=== PATIENT | male | born 1995 | race African-American/Black ===

== ENCOUNTER 2016-11-02 10:55 | Emergency (ER) | payer OTHER ==
[2016-11-02 12:26] VITALS: BP 93/56
--- NOTE | 2016-11-02 13:21 | UC ---
HPI Febrile Illness - HPI Summary HPI Summary: 21 yo male with a one week hx of feeling feverish fatigue /myalgias mild sore throat no cough no runny nose no abd pain no UTI symptoms no n/v/d - History of Current Complaint Chief Complaint: UCGeneralIllness Time Seen by Provider: 11/02/16 12:30 Hx Obtained From: Patient Timing: Constant Initial Severity: Mild Current Severity: None Pain Intensity: 4 Pain Scale Used: 0-10 Numeric Aggravating Factors: Nothing Alleviating Factors: Nothing Associated Signs and Symptoms: Chills, Headache - mild, Sore Throat - mild, Other: - fatgue Related History: Recent Tick Bite - no recent bites/fishes a lot/has removed them from dog - Allergy/Home Medications Allergies/Adverse Reactions: Allergies Allergy/AdvReac Type Severity Reaction Status Date / Time Amoxicillin Allergy Intermediate Rash Verified 11/02/16 12:27 Home Medications: Home Medications FLUoxetine CAP* [Prozac CAP*] 30 mg PO DAILY 11/02/16 [History Confirmed ] lamoTRIgine TAB(*) [Lamictal TAB(*)] 50 mg PO DAILY 11/02/16 [History Confirmed 11/02/16] PMH/Surg Hx/FS Hx/Imm Hx Previously Healthy: Yes Psychiatric History: Reports: Other Psychiatric Issues/Disorders - OCD - Surgical History Surgery Procedure, Year, and Place: lymph node removed from head Infectious Disease History: No Infectious Disease History: Denies: Traveled Outside the [place] in Last 30 Days - Social History Alcohol Use: Rare Substance Use Type: Reports: None Smoking Status (MU): Never Smoked Tobacco Type: Smokeless Tobacco Review of Systems Constitutional: Fatigue ENT: Sore Throat Musculoskeletal: Myalgia Neurological: Headache All Other Systems Reviewed And Are Negative: Yes Physical Exam Triage Information Reviewed: Yes Appearance: Well-Appearing, No Pain Distress, Well-Nourished Vital Signs: Initial Vital Signs Temp 98.7 F 11/02/16 12:23 Pulse 89 11/02/16 12:23 Resp 17 11/02/16 12:23 BP 93/56 11/02/16 12:23 Pulse Ox 100 11/02/16 12:23 Vital Signs Reviewed: Yes Eyes: Positive: Conjunctiva Clear ENT: Positive: Hearing grossly normal, Pharyngeal erythema, TMs normal. Negative: Nasal congestion, Nasal drainage, TM bulging, TM dull, TM red, Tonsillar exudate, Trismus, Muffled/hoarse voice Dental: Negative: Gross Decay/Caries @, Dental Fracture @, Abscess @ Neck: Positive: Supple, Nontender, No Lymphadenopathy Respiratory: Positive: Lungs clear, Normal breath sounds, No respiratory distress, No accessory muscle use Cardiovascular: Positive: RRR, No Murmur. Negative: Tachycardia, Bradycardia Abdomen Description: Positive: Nontender, No Organomegaly. Negative: Bruit, CVA Tenderness (L), Guarding, Pulsatile Mass, Splenomegaly Musculoskeletal: Positive: ROM Intact, No Edema Neurological Exam: Normal Neurological: Positive: Alert Psychological Exam: Normal Skin Exam: Normal Course/Dx - Course Course Of Treatment: declines blood work (cbc/lyme). will reconsider if not better in a few days. RS and Udip (-) - Diagnoses Clinic Provider Diagnoses: febrile illness. suspect viral syndrome Discharge - Discharge Plan Condition: Stable Disposition: HOME Patient Education Materials: Viral Syndrome (ED) Forms: *Gen. Provider Communication, *Work Release Referrals: [facility] [place] [facility] [Outside] - If Needed Additional Instructions: rest fluids tylenol or advil if needed recheck in 3-4 days if not better recheck sooner for new or worsening symptoms
== END 2016-11-02 13:20 | disposition home or self-care (01) ==
LOC: UCCORT 10:55 → MERGE 10:55 → UCCORT 13:20
DX: R50.9 Fever, unspecified (principal); R53.83 Other fatigue; J02.9 Acute pharyngitis, unspecified; Z88.1 Allergy status to other antibiotic agents
CPT/HCPCS: 81003; 87651; 99201; G0463

== ENCOUNTER 2016-11-04 18:55 | Emergency (ER) | payer OTHER ==
[2016-11-04] MEDS ORDERED: lamoTRIgine TAB(*) 100 MG PO ONE (21:17)
[2016-11-04] MEDS ORDERED: FLUoxetine CAP* 10 MG PO ONE (21:17)
--- NOTE | 2016-11-04 21:33 | ED ---
Emily Arrieta Janilya, scribed for Jewell Fields MD on 11/04/16 at 2053 . Complex/Multi-Sys Presentation - HPI Summary HPI Summary: A 21 y/o male came in to [facility] for a request for Lamictal and Prozac prescription. Pt states that he was seen at [facility] where has prescribed these medications. His doctor continued the prescription of these meds for the next 6 months. However, pt reports that his doctor suddenly discontinued the prescription. He ran out of his medication on , 2016 and requests a refill. He normally takes 50 mg of Lamictal (25 mg twice a day) and 30 mg of Prozac (20 mg and 10 mg tablets). Pt states that the medications have been working for him. However, he does report feeling agitated for the past few days. Pt denies feeling suicidal. PMHx borderline personality disorder, OCD, bipolar disorder. - History Of Current Complaint Chief Complaint: EDGeneral Time Seen by Provider: 11/04/16 20:46 Hx Obtained From: Patient Onset/Duration: Gradual Onset, Lasting Days, Still Present Timing: Constant Severity Currently: Moderate Severity Initially: Moderate Associated Signs And Symptoms: Positive: Agitation - Allergies/Home Medications Allergies/Adverse Reactions: Allergies Allergy/AdvReac Type Severity Reaction Status Date / Time Amoxicillin Allergy Intermediate Rash Verified 11/02/16 12:27 PINK DYE Allergy Severe Anaphylatic Uncoded 03/10/16 12:32 Shock PMH/Surg Hx/FS Hx/Imm Hx Previously Healthy: Yes Respiratory History: Reports: Hx Asthma - with exercise GI History: Reports: Other GI Disorders - rectal bleeding, polyps Musculoskeletal History: Reports: Other Musculoskeletal History - broken big toe 3 mths ago Sensory History: Reports: Hx Contacts or Glasses Opthamlomology History: Reports: Hx Contacts or Glasses Psychiatric History: Reports: Hx Depression, Other Psychiatric Issues/Disorders - OCD Denies: Hx Eating Disorder, Hx of Violent Episodes Against Others - Surgical History Surgery Procedure, Year, and Place: lymph node removed from head Infectious Disease History: Denies: Traveled Outside the [place] in Last 30 Days - Family History Known Family History: Negative: Cardiac Disease, Hypertension, Diabetes - Social History Occupation: Employed Full-time Alcohol Use: Occasionally Alcohol Amount: 1/2 glass wine tonight Substance Use Type: Reports: None Smoking Status (MU): Never Smoked Tobacco Type: Smokeless Tobacco Review of Systems Negative: Fever Positive: Other - agitated All Other Systems Reviewed And Are Negative: Yes Physical Exam Triage Information Reviewed: Yes Vital Signs On Initial Exam: Initial Vitals Temp Pulse Resp BP Pulse Ox 97.6 F 107 20 113/71 100 11/04/16 19:00 11/04/16 19:00 11/04/16 19:00 11/04/16 19:00 11/04/16 19:00 Vital Signs Reviewed: Yes Appearance: Positive: Well-Appearing, No Pain Distress Skin: Positive: Warm, Skin Color Reflects Adequate Perfusion Eyes: Positive: EOMI, ARELY ENT: Positive: Pharynx normal, TMs normal Neck: Positive: Supple, Nontender Respiratory/Lung Sounds: Positive: Clear to Auscultation, Breath Sounds Present. Negative: Rales, Rhonchi, Wheezes Cardiovascular: Positive: RRR, Pulses are Symmetrical in both Upper and Lower Extremities. Negative: Murmur, Rub, Other - no gallops Abdomen Description: Positive: Nontender, Soft. Negative: Distended, Guarding, Other: - no rebound Bowel Sounds: Positive: Present Musculoskeletal: Positive: Strength/ROM Intact. Negative: Edema Left, Edema Right Neurological: Positive: Sensory/Motor Intact, Alert, Oriented to Person Place, Time, CN Intact II-III Psychiatric: Positive: Affect/Mood Appropriate Diagnostics - Vital Signs Vital Signs Temp Pulse Resp BP Pulse Ox 11/04/16 19:00 97.6 F 107 20 113/71 100 - Laboratory Lab Statement: Any lab studies that have been ordered have been reviewed, and results considered in the medical decision making process. Complex Multi-Symp Course/Dx Course Of Treatment: A 21 y/o male came in to [facility] for a request for Lamictal and Prozac prescription. Pt states that he was seen at [facility] where has prescribed these medications. His doctor continued the prescription of these meds for the next 6 months. However, pt reports that his doctor suddenly discontinued the prescription. He ran out of his medication on , 11/02/2016 and requests a refill. He normally takes 50 mg of Lamictal (25 mg twice a day) and 30 mg of Prozac (20 mg and 10 mg tablets). Pt states that the medications have been working for him. However, he does report feeling agitated for the past few days. Pt denies feeling suicidal. PMHx borderline personality disorder, OCD, bipolar disorder. refilled pts meds and gave him several refills in order to give him enough time to get back into [facility], pt deneis suicidality - Diagnoses Provider Diagnoses: Borderline personality disorder Discharge - Discharge Plan Condition: Stable Disposition: HOME Prescriptions: FLUoxetine CAP* [PROzac CAP*] 30 mg PO DAILY #30 cap lamoTRIgine TAB(*) [LaMICtal TAB(*)] 50 mg PO BID #60 tab Patient Education Materials: Bipolar Disorder (ED) Referrals: No Primary Care Phys,NOPCP [Primary Care Provider] - [facility] [place] [facility] RE[facility]ERR[facility] [Outside] - 2 Days The documentation as recorded by the Emily velasquez Janilya accurately reflects the service I personally performed and the decisions made by me, Jewell Fields MD.
[2016-11-04] MEDS ORDERED: lamoTRIgine TAB(*) 25 MG ONE (21:38)
[2016-11-04 21:58] VITALS: BP 94/61
[2016-11-04] MEDS ORDERED: lamoTRIgine TAB(*) 25 MG PO ONE (22:00)
== END 2016-11-04 21:55 | disposition home or self-care (01) ==
LOC: ED 18:55
DX: F60.3 Borderline personality disorder (principal)
CPT/HCPCS: 99282; A9270-GY

== ENCOUNTER 2017-01-03 15:38 | Emergency (ER) | payer OTHER ==
[2017-01-03 16:02] VITALS: BP 101/56
--- NOTE | 2017-01-03 16:11 | UC ---
Abdominal Pain Male HPI - HPI Summary HPI Summary: had emesis times 3 yesterday---today is taking clear liquids and crackers---no fever, voiding usual amount - History of Current Complaint Chief Complaint: UCGeneralIllness Stated Complaint: NAUSEA Time Seen by Provider: 01/03/17 16:05 Hx Obtained From: Patient Onset/Duration: Sudden Onset, Lasting Days - 1, Still Present - but getting better Timing: Constant Severity Initially: Moderate Severity Currently: Mild Pain Intensity: 3 Pain Scale Used: 0-10 Numeric Location: Diffuse Radiates: No Character: Cramping Aggravating Factor(s):: Nothing Alleviating Factor(s): Nothing Associated Signs And Symptoms: Positive: Nausea, Vomiting - Allergies/Home Medications Allergies/Adverse Reactions: Allergies Allergy/AdvReac Type Severity Reaction Status Date / Time Amoxicillin Allergy Intermediate Rash Verified 01/03/17 16:02 PINK DYE Allergy Severe Anaphylatic Uncoded 01/03/17 16:02 Shock PMH/Surg Hx/FS Hx/Imm Hx Previously Healthy: Yes - Surgical History Surgical History: Yes Surgery Procedure, Year, and Place: lymph node removed from head - Family History Known Family History: Negative: Cardiac Disease, Hypertension, Diabetes - Social History Occupation: Employed Full-time Lives: With Family Alcohol Use: Occasionally Substance Use Type: None Smoking Status (MU): Never Smoked Tobacco Type: Smokeless Tobacco Household Exposure Type: Cigarettes - Immunization History Most Recent Influenza Vaccination: none Most Recent Tetanus Shot: 01/21 Most Recent Pneumonia Vaccination: no Review of Systems Constitutional: Negative Skin: Negative Eyes: Negative ENT: Negative Respiratory: Negative Cardiovascular: Negative Gastrointestinal: Abdominal Pain, Vomiting, Nausea Genitourinary: Negative Motor: Negative Neurovascular: Negative Musculoskeletal: Negative Neurological: Negative Psychological: Negative All Other Systems Reviewed And Are Negative: Yes Physical Exam Triage Information Reviewed: Yes Appearance: Well-Appearing, No Pain Distress, Well-Nourished Vital Signs: Initial Vital Signs Temp 97.5 F 01/03/17 15:58 Pulse 80 01/03/17 15:58 Resp 16 01/03/17 15:58 BP 101/56 01/03/17 15:58 Pulse Ox 99 01/03/17 15:58 Vital Signs Reviewed: Yes Eye Exam: Normal Eyes: Positive: Conjunctiva Clear ENT Exam: Normal ENT: Positive: Normal ENT inspection, Hearing grossly normal, Pharynx normal, TMs normal. Negative: Nasal congestion, Nasal drainage, Trismus, Muffled/ hoarse voice Dental Exam: Normal Neck exam: Normal Neck: Positive: Supple, Nontender, No Lymphadenopathy Respiratory Exam: Normal Respiratory: Positive: Chest non-tender, Lungs clear, Normal breath sounds, No respiratory distress, No accessory muscle use Cardiovascular Exam: Normal Cardiovascular: Positive: RRR, No Murmur, Pulses Normal, Brisk Capillary Refill Abdominal Exam: Normal Abdomen Description: Positive: No Organomegaly, Soft Bowel Sounds: Positive: Present Musculoskeletal Exam: Normal Musculoskeletal: Positive: Strength Intact, ROM Intact, No Edema Neurological Exam: Normal Neurological: Positive: Alert, Muscle Tone Normal Psychological Exam: Normal Skin Exam: Normal Abd Pain Male Course/Dx - Course Course Of Treatment: clear liquids advance diet slowly, follow with pcp return should sx fail to improve or worsen - Differential Dx/Clinical Impression Differential Diagnosis/HQI/PQRI: Appendicitis, Gall Bladder Disease, Pancreatitis, Other - acute nausea/vomiting Provider Diagnoses: Acute nausea/vomiting Discharge - Discharge Plan Condition: Stable Disposition: HOME Prescriptions: Fluticasone NASAL SPRAY 50MCG* [Flonase NASAL SPRAY 50MCG*] 2 spray BOTH NARES DAILY #1 btl Patient Education Materials: Clear Liquid Diet (ED), Rhinosinusitis (ED), Acute Nausea and Vomiting (ED) Forms: *Work Release Referrals: [facility] [place] [facility] [Outside] - If Needed
== END 2017-01-03 16:18 | disposition home or self-care (01) ==
LOC: UCCORT 15:38
DX: R11.2 Nausea with vomiting, unspecified (principal)
CPT/HCPCS: 99212; G0463

== ENCOUNTER 2017-03-05 13:55 | Emergency (ER) | payer OTHER ==
--- NOTE | 2017-03-05 13:58 | UC ---
Throat Pain/Nasal Venkat HPI - HPI Summary HPI Summary: 21 YEAR OLD MALE PRESENTS WITH COMPLAINS OF SORE THROAT. OF NOTE SHE WAS EXPOSED TO STREPT BY HIS PARTNER. - History of Current Complaint Stated Complaint: SORE THROAT Time Seen by Provider: 03/05/17 13:57 Hx Obtained From: Patient Onset/Duration: Sudden Onset, Lasting Hours Severity: Moderate Pain Scale Used: 0-10 Numeric - 5 Cough: Nonproductive Associated Signs & Symptoms: Positive: Sinus Discomfort, Nasal Discharge Related History: Seasonal Allergies - Allergies/Home Medications Allergies/Adverse Reactions: Allergies Allergy/AdvReac Type Severity Reaction Status Date / Time Amoxicillin Allergy Intermediate Rash Verified 03/05/17 14:05 PINK DYE Allergy Severe Anaphylatic Uncoded 03/05/17 14:05 Shock PMH/Surg Hx/FS Hx/Imm Hx Previously Healthy: Yes - Surgical History Surgical History: Yes Surgery Procedure, Year, and Place: lymph node removed from head - Family History Known Family History: Negative: Cardiac Disease, Hypertension, Diabetes - Social History Alcohol Use: Occasionally Alcohol Amount: 1/2 glass wine tonight Substance Use Type: None Smoking Status (MU): Never Smoked Tobacco Type: Smokeless Tobacco Household Exposure Type: Cigarettes - Immunization History Most Recent Influenza Vaccination: none Most Recent Tetanus Shot: 01/21 Most Recent Pneumonia Vaccination: no Review of Systems Constitutional: Negative Skin: Negative Eyes: Negative ENT: Sore Throat Respiratory: Negative Cardiovascular: Negative Gastrointestinal: Negative Genitourinary: Negative Motor: Negative Neurovascular: Negative Musculoskeletal: Negative Neurological: Negative Psychological: Negative All Other Systems Reviewed And Are Negative: Yes Physical Exam Triage Information Reviewed: Yes Appearance: Well-Appearing Vital Signs Reviewed: Yes Eye Exam: Normal ENT: Positive: Pharyngeal erythema, Nasal congestion, Nasal drainage Dental Exam: Normal Neck exam: Normal Neck: Positive: 1 Respiratory Exam: Normal Cardiovascular Exam: Normal Abdominal Exam: Normal Musculoskeletal Exam: Normal Neurological Exam: Normal Psychological Exam: Normal Skin Exam: Normal Throat Pain/Nasal Course/Dx - Differential Dx/Diagnosis Provider Diagnoses: PHARYNGITIS Discharge - Discharge Plan Condition: Stable Disposition: HOME Prescriptions: Azithromyxin ROXANNE (NF) [Z-Roxanne (Zithromax) 250 mg tabs #6] 2 tab PO .TODAY, THEN 1 DAILY #6 tab LoraTADine TAB(NF) [Claritin 10 MG TAB(NF)] 10 mg PO DAILY #30 tab Magic M W2 Roney/Maal/Nyst/Lido* 15 ml SWISH SPIT QID #120 ml Patient Education Materials: Pharyngitis (ED) Referrals: No Primary Care Phys,NOPCP [Primary Care Provider] -
[2017-03-05 14:05] VITALS: BP 108/64
== END 2017-03-05 14:30 | disposition home or self-care (01) ==
LOC: UCCORT 13:55
DX: J02.9 Acute pharyngitis, unspecified (principal); Z88.1 Allergy status to other antibiotic agents; Z91.048 Other nonmedicinal substance allergy status
CPT/HCPCS: 87651; 99212; G0463

== ENCOUNTER 2017-04-13 18:18 | Emergency (ER) | payer OTHER ==
--- NOTE | 2017-04-13 18:41 | UC ---
Throat Pain/Nasal Venkat HPI - HPI Summary HPI Summary: 21 YEAR OLD FEMALE PRESENTS WITH SORE THROAT , POST NASAL DRIP AND NASAL CONGESTION - History of Current Complaint Stated Complaint: SORE THROAT/SINUS Time Seen by Provider: 04/13/17 18:41 Hx Obtained From: Patient Onset/Duration: Sudden Onset Severity: Moderate Pain Scale Used: 0-10 Numeric - 5 Cough: Nonproductive Associated Signs & Symptoms: Positive: Negative - Allergies/Home Medications Allergies/Adverse Reactions: Allergies Allergy/AdvReac Type Severity Reaction Status Date / Time Amoxicillin Allergy Intermediate Rash Verified 04/13/17 18:44 PINK DYE Allergy Severe Anaphylatic Uncoded 04/13/17 18:44 Shock PMH/Surg Hx/FS Hx/Imm Hx Previously Healthy: Yes - Surgical History Surgical History: Yes Surgery Procedure, Year, and Place: lymph node removed from head - Family History Known Family History: Negative: Cardiac Disease, Hypertension, Diabetes - Social History Alcohol Use: Occasionally Alcohol Amount: 1/2 glass wine tonight Substance Use Type: None Smoking Status (MU): Never Smoked Tobacco Type: Smokeless Tobacco Household Exposure Type: Cigarettes - Immunization History Most Recent Influenza Vaccination: none Most Recent Tetanus Shot: 01/21 Most Recent Pneumonia Vaccination: no Review of Systems Constitutional: Negative Skin: Negative Eyes: Negative ENT: Sore Throat, Nasal Discharge, Sinus Congestion, Sinus Pain/Tenderness Respiratory: Negative Cardiovascular: Negative Gastrointestinal: Negative Genitourinary: Negative Motor: Negative Neurovascular: Negative Musculoskeletal: Negative Neurological: Negative Psychological: Negative All Other Systems Reviewed And Are Negative: Yes Physical Exam Triage Information Reviewed: Yes Vital Signs Reviewed: Yes Eye Exam: Normal ENT Exam: Normal Dental Exam: Normal Neck exam: Normal Neck: Positive: 1 Respiratory Exam: Normal Cardiovascular Exam: Normal Abdominal Exam: Normal Musculoskeletal Exam: Normal Neurological Exam: Normal Psychological Exam: Normal Skin Exam: Normal Throat Pain/Nasal Course/Dx - Differential Dx/Diagnosis Provider Diagnoses: PHARYNGITIS. SINUSITIS. POST NASAL DRIP Discharge - Discharge Plan Condition: Stable Disposition: HOME Prescriptions: Cetirizine* [ZyrTEC 10 MG TAB*] 10 mg PO DAILY #30 tab DOXYcycline CAP(*) [DOXYcycline 100MG CAP(*)] 100 mg PO BID #14 cap Magic M W2 Roney/Maal/Nyst/Lido* 5 ml SWISH SPIT QID PRN #120 ml PRN Reason: Sore Throat Patient Education Materials: Pharyngitis (ED) Forms: *Work Release Referrals: No Primary Care Phys,NOPCP [Primary Care Provider] -
[2017-04-13 18:50] VITALS: BP 105/57
[2017-04-13] MEDS ORDERED: Lidocaine 2% VISCOUS* 15 ML UDC SWISH SPIT ONE ×2 (19:12→19:22)
[2017-04-13] MEDS ORDERED: LoraTADine TAB(NF) 10 MG TAB (AUTOSUB to CETIRIZINE) PO ONE (19:12)
[2017-04-13] MEDS ORDERED: LoraTADine TAB(NF) 10 MG TAB (AUTOSUB to CETIRIZINE) ONE (19:17)
[2017-04-13] MEDS ORDERED: Lidocaine 2% VISCOUS* 15 ML UDC ONE ×2 (19:17→19:20)
== END 2017-04-13 19:25 | disposition home or self-care (01) ==
LOC: EDSEX 18:18 → UCCORT 18:18
DX: J02.9 Acute pharyngitis, unspecified (principal); J32.9 Chronic sinusitis, unspecified; R09.82 Postnasal drip; Z88.0 Allergy status to penicillin
CPT/HCPCS: 87651; 99212; A9270-GY; G0463

== ENCOUNTER 2017-04-30 17:01 | Emergency (ER) | payer OTHER ==
[2017-04-30 18:54] VITALS: BP 111/66
--- NOTE | 2017-04-30 19:39 | ED ---
Upper Extremity Pain - HPI Summary HPI Summary: 22 yr old female with the complaint of right little finger pain. Onset of pain was several days ago. She got the right pinky finger jammed between a tire and tire rack. Pain is worse on range of motion of DIP 5th finger. Pain is moderate. - History of Current Complaint Chief Complaint: UCUpperExtremity Stated Complaint: RIGHT PINKY FINGER INJURY Time Seen by Provider: 04/30/17 19:26 - Allergies/Home Medications Allergies/Adverse Reactions: Allergies Allergy/AdvReac Type Severity Reaction Status Date / Time Amoxicillin Allergy Intermediate Rash Verified 04/30/17 18:53 PINK DYE Allergy Severe Anaphylatic Uncoded 04/30/17 18:53 Shock PMH/Surg Hx/FS Hx/Imm Hx Previously Healthy: Yes Respiratory History: Reports: Hx Asthma - with exercise GI History: Reports: Other GI Disorders - rectal bleeding, polyps Musculoskeletal History: Reports: Other Musculoskeletal History - broken big toe 3 mths ago Sensory History: Reports: Hx Contacts or Glasses Opthamlomology History: Reports: Hx Contacts or Glasses Psychiatric History: Reports: Hx Depression, Other Psychiatric Issues/Disorders - OCD Denies: Hx Eating Disorder, Hx of Violent Episodes Against Others - Surgical History Surgery Procedure, Year, and Place: lymph node removed from head Infectious Disease History: No Infectious Disease History: Denies: Traveled Outside the [place] in Last 30 Days - Family History Known Family History: Negative: Cardiac Disease, Hypertension, Diabetes - Social History Alcohol Use: Occasionally Alcohol Amount: 1/2 glass wine tonight Substance Use Type: Reports: None Smoking Status (MU): Never Smoked Tobacco Type: Smokeless Tobacco Review of Systems Constitutional: Negative Positive: Other - pain in right 5th finger All Other Systems Reviewed And Are Negative: Yes Physical Exam Triage Information Reviewed: Yes Vital Signs On Initial Exam: Initial Vitals Temp Pulse Resp BP Pulse Ox 97.6 F 79 14 111/66 100 04/30/17 18:50 04/30/17 18:50 04/30/17 18:50 04/30/17 18:50 04/30/17 18:50 Vital Signs Reviewed: Yes Appearance: Positive: Well-Appearing, No Pain Distress Skin: Positive: Warm Head/Face: Positive: Normal Head/Face Inspection Eyes: Positive: EOMI Neck: Positive: Nontender Respiratory/Lung Sounds: Positive: Clear to Auscultation Cardiovascular: Positive: Pulses are Symmetrical in both Upper and Lower Extremities - upper Abdomen Description: Positive: Nontender Musculoskeletal: Positive: Strength/ROM Intact Neurological: Positive: Sensory/Motor Intact, Alert, Oriented to Person Place, Time, CN Intact II-III Psychiatric: Positive: Normal - Maria Esther Coma Scale Best Eye Response: 4 - Spontaneous Best Motor Response: 6 - Obeys Commands Best Verbal Response: 5 - Oriented Diagnostics - Vital Signs Vital Signs Temp Pulse Resp BP Pulse Ox 04/30/17 18:50 97.6 F 79 14 111/66 100 - Laboratory Lab Statement: Any lab studies that have been ordered have been reviewed, and results considered in the medical decision making process. - Radiology right pinky finger Xray Interpretation: No Acute Changes Radiology Interpretation Completed By: Radiologist Course/Dx - Course Course Of Treatment: 22 yr old with finger sprain, dc to home. - Diagnoses Provider Diagnoses: Finger sprain Discharge - Discharge Plan Condition: Good Disposition: HOME Patient Education Materials: Finger Sprain (ED) Referrals: No Primary Care Phys,NOPCP [Primary Care Provider] - Mercedes Bonilla MD [Medical Doctor] - [facility] [place] [facility] [Outside]
--- NOTE | 2017-04-30 20:27 | RAD ---
INDICATION: Crush type injury COMPARISON: None TECHNIQUE: AP, lateral, and oblique views were obtained. FINDINGS: The bony structures, joint spaces, and soft tissues are normal for age. IMPRESSION: NEGATIVE EXAMINATION.
== END 2017-04-30 20:54 | disposition home or self-care (01) ==
LOC: UCCORT 17:01
DX: S63.616A Unspecified sprain of right little finger, initial encounter (principal); W23.0XXA Caught, crushed, jammed, or pinched between moving objects, initial encounter; Y93.89 Activity, other specified; Y92.9 Unspecified place or not applicable; J45.990 Exercise induced bronchospasm; F32.9 Major depressive disorder, single episode, unspecified; Z88.1 Allergy status to other antibiotic agents
CPT/HCPCS: 73140; 99212; G0463

== ENCOUNTER 2017-05-22 08:44 | Emergency (ER) | payer OTHER ==
[2017-05-22 09:29] VITALS: BP 102/62
--- NOTE | 2017-05-22 10:53 | UC ---
General HPI - HPI Summary HPI Summary: Pt is here for medication refill. Pt reports that she has history bipolar and OCD and is has been on prozac and lamictal X 2 years. Pt reports she has been unbable to get an appointment with mental health provider in the area. Was given 6 month supply of medications at ER visit in October 2016 at [facility] [place]. Pt report zaira prescription ran out last week and feels she is going through withdrawal. - History of Current Complaint Chief Complaint: UCMedRefill Stated Complaint: PERSCRIPTION REFIL Time Seen by Provider: 05/22/17 10:19 Hx Obtained From: Patient Hx Last Menstrual Period: 05/09/17 Onset/Duration: Gradual Onset, Still Present Timing: Constant Onset Severity: Mild Current Severity: None Pain Intensity: 0 - Allergy/Home Medications Allergies/Adverse Reactions: Allergies Allergy/AdvReac Type Severity Reaction Status Date / Time Amoxicillin Allergy Intermediate Rash Verified 05/22/17 09:29 PINK DYE Allergy Severe Anaphylatic Uncoded 05/22/17 09:29 Shock PMH/Surg Hx/FS Hx/Imm Hx Previously Healthy: Yes - bipolar, ocd Psychological History: Bipolar Disorder, Other - OCD Other Psychological History: OCD - Surgical History Surgical History: Yes Surgery Procedure, Year, and Place: lymph node removed from head - Family History Known Family History: Negative: Cardiac Disease, Hypertension, Diabetes - Social History Occupation: Employed Full-time Lives: With Family Alcohol Use: Occasionally Alcohol Amount: 1/2 glass wine tonight Substance Use Type: None Smoking Status (MU): Light Every Day Tobacco Smoker Type: Cigarettes, Smokeless Tobacco Amount Used/How Often: 1 pack per week Have You Smoked in the Last Year: Yes Household Exposure Type: Cigarettes - Immunization History Most Recent Influenza Vaccination: none Most Recent Tetanus Shot: 01/21 Most Recent Pneumonia Vaccination: no Review of Systems Constitutional: Negative Skin: Negative Eyes: Negative ENT: Negative Respiratory: Negative Cardiovascular: Negative Gastrointestinal: Negative Genitourinary: Negative Motor: Negative Neurovascular: Negative Musculoskeletal: Negative Neurological: Negative Psychological: Negative Is Patient Immunocompromised?: No All Other Systems Reviewed And Are Negative: Yes Physical Exam Triage Information Reviewed: Yes Appearance: Well-Appearing Vital Signs: Initial Vital Signs Temp 98.4 F 05/22/17 09:24 Pulse 85 05/22/17 09:24 Resp 16 05/22/17 09:24 BP 102/62 05/22/17 09:24 Pulse Ox 100 05/22/17 09:24 Eye Exam: Normal ENT Exam: Normal Dental Exam: Normal Neck exam: Normal Respiratory: Positive: No respiratory distress Musculoskeletal Exam: Normal Neurological Exam: Normal Psychological Exam: Normal Skin Exam: Normal Course/Dx - Course Course Of Treatment: Pt was given referral to mental health providers, I explained that we can not continue to refill her medications. Pt verbalized understanding and agreed to plan of care. - Differential Dx - Multi-Symptom Provider Diagnoses: Medication refill. pt was given referral to PCP and mental health providers. Discharge - Discharge Plan Condition: Stable Disposition: HOME Prescriptions: FLUoxetine CAP* [Prozac CAP*] 30 mg PO DAILY #30 cap lamoTRIgine TAB(*) [Lamictal TAB(*)] 100 mg PO DAILY #30 tab Patient Education Materials: Medicine Refill (ED) Referrals: No Primary Care Phys,NOPCP [Primary Care Provider] - Additional Instructions: Please establish care with a PCP we have provided a list of local primary care providers. Additionally, we have provided one month of medication for you as a courtesy but can not continue to provide medication refills you must establish care with a PCP and a Mental Health Provider as soon as possible.
== END 2017-05-22 10:42 | disposition home or self-care (01) ==
LOC: UCCORT 08:44
DX: F31.9 Bipolar disorder, unspecified (principal); F42.9 Obsessive-compulsive disorder, unspecified; Z76.0 Encounter for issue of repeat prescription; Z88.1 Allergy status to other antibiotic agents; F17.210 Nicotine dependence, cigarettes, uncomplicated
CPT/HCPCS: 99212; G0463

== ENCOUNTER 2017-06-05 10:43 | Emergency (ER) | payer OTHER ==
[2017-06-05 11:12] VITALS: BP 93/55
--- NOTE | 2017-06-05 11:36 | UC ---
Throat Pain/Nasal Venkat HPI - HPI Summary HPI Summary: 22 female presents to with complaints of sore throat that has been ongoing for 2 days and feels it is worsening. Pain is worsened with swallowing. Denies cough, trouble breathing, vomiting, nausea, and nasal congestion. Denies headache and ear pain. Admits to having some body aches. Denies fatigue and fever/chills. Has been diagnosed with mono in the past. States fiance and two daughters are also ill, not feeling well. No other complaints at this time. No PMHx. Has not taken any medications. - History of Current Complaint Chief Complaint: UCRespiratory Stated Complaint: ST/BODY ACHES Time Seen by Provider: 06/05/17 11:19 Hx Obtained From: Patient Hx Last Menstrual Period: 05/29/17 ?: No Onset/Duration: Sudden Onset, Lasting Days - 2, Still Present, Worse Since Severity: Moderate Pain Intensity: 8 Pain Scale Used: 0-10 Numeric Cough: None Associated Signs & Symptoms: Positive: Dysphagia - Epiglottits Risk Factors Epiglottis Risk Factors: Negative - Allergies/Home Medications Allergies/Adverse Reactions: Allergies Allergy/AdvReac Type Severity Reaction Status Date / Time Amoxicillin Allergy Intermediate Rash Verified 06/05/17 11:05 PINK DYE Allergy Severe Anaphylatic Uncoded 06/05/17 11:05 Shock PMH/Surg Hx/FS Hx/Imm Hx - Additional Past Medical History Additional PMH: Denies PMHx HTN and DM - Surgical History Surgical History: Yes Surgery Procedure, Year, and Place: lymph node removed from head - Family History Known Family History: Negative: Cardiac Disease, Hypertension, Diabetes - Social History Alcohol Use: Occasionally Alcohol Amount: 1/2 glass wine tonight Substance Use Type: None Smoking Status (MU): Light Every Day Tobacco Smoker Type: Cigarettes, Smokeless Tobacco Amount Used/How Often: 1 pack per week Have You Smoked in the Last Year: Yes Household Exposure Type: Cigarettes - Immunization History Most Recent Influenza Vaccination: none Most Recent Tetanus Shot: 01/21 Most Recent Pneumonia Vaccination: no Review of Systems Constitutional: Negative ENT: Sore Throat Respiratory: Negative Cardiovascular: Negative Musculoskeletal: Myalgia Neurological: Negative All Other Systems Reviewed And Are Negative: Yes Physical Exam Triage Information Reviewed: Yes Appearance: Well-Appearing, No Pain Distress, Well-Nourished Vital Signs: Initial Vital Signs Temp 97.2 F 06/05/17 11:06 Pulse 80 06/05/17 11:06 Resp 16 06/05/17 11:06 BP 93/55 06/05/17 11:06 Pulse Ox 100 06/05/17 11:06 Vital Signs Reviewed: Yes Eyes: Positive: Conjunctiva Clear ENT: Positive: Normal ENT inspection, Hearing grossly normal, Pharyngeal erythema, TMs normal, Uvula midline, Other - airway patent, no sign of peritonsillar abscess. Negative: Nasal congestion, Nasal drainage, Tonsillar swelling, Tonsillar exudate, Trismus, Muffled voice, Sinus tenderness Dental: Negative: Percussion Tenderness @, Cervical Lymphadenopathy Neck: Positive: Supple, Nontender, No Lymphadenopathy Respiratory: Positive: Chest non-tender, Lungs clear, Normal breath sounds, No respiratory distress Cardiovascular: Positive: RRR, No Murmur, Pulses Normal, Brisk Capillary Refill Abdomen Description: Positive: Nontender, Soft Musculoskeletal: Positive: Strength Intact Neurological: Positive: Alert Skin Exam: Normal Throat Pain/Nasal Course/Dx - Course Course Of Treatment: rapid strep obtained and negative. no concerning physical exam findings, normal vitals. no concern for mono or strep at this time due to HPI and PE findings. will treat for pharyngitis which appears to be viral with symptomatic measures. chloraseptic spray, increase fluid intake, salt water gargles, zinc/emergen-c. Aware of worsening signs and symptoms. wash hands frequently. Follow up with pcp. - Differential Dx/Diagnosis Differential Diagnosis/HQI/PQRI: Mononucleosis, Pharyngitis, URI Provider Diagnoses: viral pharyngitis Discharge - Discharge Plan Condition: Good Disposition: HOME Patient Education Materials: Pharyngitis (ED) Referrals: No Primary Care Phys,NOPCP [Primary Care Provider] - Additional Instructions: Recommend gargling with salt water. Using over the counter chloraseptic spray, emergen-c and zinc to help with symptoms and boost immune system. Increase fluid intake. Ibuprofen/tylenol as needed for pain/inflammation. Follow up with PCP. Any new or worsening symptoms please seek medical attention.
== END 2017-06-05 11:55 | disposition home or self-care (01) ==
LOC: UCCORT 10:43
DX: J02.8 Acute pharyngitis due to other specified organisms (principal); Z72.89 Other problems related to lifestyle; Z72.0 Tobacco use; Z77.22 Contact with and (suspected) exposure to environmental tobacco smoke (acute) (chronic)
CPT/HCPCS: 87651; 99211; G0463

== ENCOUNTER 2017-07-10 17:10 | Emergency (ER) | payer OTHER ==
[2017-07-10 17:49] VITALS: BP 94/54
--- NOTE | 2017-07-10 18:10 | UC ---
Nausea/Vomiting/Diarrhea HPI - HPI Summary HPI Summary: 22 YEAR OLD FEMALE PRESENTS WITH COMPLAINS OF NAUSEA AND VOMITING. - History of Current Complaint Chief Complaint: UCGeneralIllness Stated Complaint: VOMITTING,DIARRHEA Time Seen by Provider: 07/10/17 18:10 Hx Last Menstrual Period: 06/25/17 Onset/Duration: Sudden Onset Severity Initially: Moderate Severity Currently: Moderate - Allergies/Home Medications Allergies/Adverse Reactions: Allergies Allergy/AdvReac Type Severity Reaction Status Date / Time Amoxicillin Allergy Intermediate Rash Verified 07/10/17 17:49 PINK DYE Allergy Severe Anaphylatic Uncoded 07/10/17 17:49 Shock PMH/Surg Hx/FS Hx/Imm Hx Previously Healthy: Yes - Surgical History Surgical History: Yes Surgery Procedure, Year, and Place: lymph node removed from head - Family History Known Family History: Negative: Cardiac Disease, Hypertension, Diabetes - Social History Alcohol Use: Occasionally Alcohol Amount: 1/2 glass wine tonight Substance Use Type: None Smoking Status (MU): Light Every Day Tobacco Smoker Type: Cigarettes, Smokeless Tobacco Amount Used/How Often: 1 pack per week Have You Smoked in the Last Year: Yes Household Exposure Type: Cigarettes - Immunization History Most Recent Influenza Vaccination: none Most Recent Tetanus Shot: 01/21 Most Recent Pneumonia Vaccination: no Review of Systems Constitutional: Negative Skin: Negative Eyes: Negative ENT: Negative Respiratory: Negative Cardiovascular: Negative Gastrointestinal: Vomiting, Nausea Genitourinary: Negative Motor: Negative Neurovascular: Negative Musculoskeletal: Negative Neurological: Negative Psychological: Negative All Other Systems Reviewed And Are Negative: Yes Physical Exam Triage Information Reviewed: Yes Vital Signs: Initial Vital Signs Temp 37.5 C 07/10/17 17:44 Pulse 98 07/10/17 17:44 Resp 18 07/10/17 17:44 BP 94/54 07/10/17 17:44 Pulse Ox 100 07/10/17 17:44 Vital Signs Reviewed: Yes Eye Exam: Normal ENT Exam: Normal Dental Exam: Normal Neck exam: Normal Neck: Positive: 1 Respiratory Exam: Normal Cardiovascular Exam: Normal Abdominal Exam: Normal Musculoskeletal Exam: Normal Neurological Exam: Normal Psychological Exam: Normal Skin Exam: Normal Naus/Vom/Diarrhea Course/Dx - Differential Dx/Diagnosis Provider Diagnoses: NAUSEA. VOMITING. DIARRHEA Condition At Discharge: Stable Discharge - Discharge Plan Condition: Stable Disposition: HOME Prescriptions: Ondansetron ODT TAB* [Zofran 4 MG Odt TAB*] 4 mg PO Q8H PRN #9 tab.odt PRN Reason: Nausea Patient Education Materials: Acute Nausea and Vomiting (ED) Forms: *Work Release Referrals: No Primary Care Phys,NOPCP [Primary Care Provider] -
== END 2017-07-10 19:02 | disposition home or self-care (01) ==
LOC: UCCORT 17:16
DX: R11.2 Nausea with vomiting, unspecified (principal); R19.7 Diarrhea, unspecified; F17.210 Nicotine dependence, cigarettes, uncomplicated; Z88.1 Allergy status to other antibiotic agents; Z91.048 Other nonmedicinal substance allergy status
CPT/HCPCS: 99212; G0463

== ENCOUNTER 2017-10-12 12:03 | Emergency (ER) | payer OTHER ==
[2017-10-12 12:25] VITALS: BP 97/47
--- NOTE | 2017-10-12 12:41 | UC ---
FLU HPI - HPI Summary HPI Summary: Pt presents with body aches, sore throat, and some nausea since yesterday. She tells me that 3 of her family members in the same house have similar symptoms and have been diagnosed with the flu. She denies fever, chills, SOB, chest pain , abdominal pain, vomiting/diarrhea. - History of Current Complaint Hx Obtained From: Patient Hx Last Menstrual Period: 06/25/17 Onset/Duration: Sudden Onset Severity Currently: Moderate Severity Initially: Severe Pain Intensity: 8 Pain Scale Used: 0-10 Numeric <Myron Giles - Last Filed: 10/12/17 12:58> <Betzaida Valle - Last Filed: 10/12/17 13:48> - History of Current Complaint Chief Complaint: UCRespiratory Stated Complaint: FLU SYMPTOMS Time Seen by Provider: 10/12/17 12:27 - Allergy/Home Medications Allergies/Adverse Reactions: Allergies Allergy/AdvReac Type Severity Reaction Status Date / Time amoxicillin Allergy Rash Verified 10/12/17 12:19 PINK DYE Allergy Severe Anaphylatic Uncoded 10/12/17 12:19 Shock PMH/Surg Hx/FS Hx/Imm Hx Previously Healthy: Yes Psychological History: Bipolar Disorder - Surgical History Surgical History: Yes Surgery Procedure, Year, and Place: lymph node removed from head - Family History Known Family History: Negative: Cardiac Disease, Hypertension, Diabetes - Social History Occupation: Employed Full-time Lives: With Family Alcohol Use: Occasionally Alcohol Amount: 1/2 glass wine tonight Substance Use Type: None Smoking Status (MU): Light Every Day Tobacco Smoker Type: eCigarettes Amount Used/How Often: 1 pack per week Have You Smoked in the Last Year: Yes Household Exposure Type: Cigarettes - Immunization History Most Recent Influenza Vaccination: none Most Recent Tetanus Shot: 01/21 Most Recent Pneumonia Vaccination: no <Myron Giles - Last Filed: 10/12/17 12:58> Review of Systems Constitutional: Fatigue, Other - Body aches Skin: Negative Eyes: Negative ENT: Sore Throat Respiratory: Negative Cardiovascular: Negative Gastrointestinal: Nausea Genitourinary: Negative Neurovascular: Negative Musculoskeletal: Negative Neurological: Negative Psychological: Negative All Other Systems Reviewed And Are Negative: Yes <Myron Giles - Last Filed: 10/12/17 12:58> Physical Exam - Summary Physical Exam Summary: GENERAL: NAD. WDWN. No pain distress. SKIN: No rashes, sores, ulcers, masses, lesions. HEENT: Head: AT/NC Eyes: EOM intact. Conjunctiva clear without inflammation or discharge. Ears: Hearing grossly normal. TMs intact, no bulging, erythema, or edema. Nose: Nasal mucosa pink and moist. NTTP maxillary and frontal sinus. Throat: Posterior oropharynx without exudates, erythema, or tonsillar enlargement. Uvula midline. NECK: Supple. Nontender. No lymphadenopathy. CHEST: CTAB. No r/r/w. No accessory muscle use. Breathing comfortably and in no distress. CV: RRR. Without m/r/g. Pulses intact. Brisk cap refill. NEURO: Alert. CN II-XII grossly intact. PSYCH: Age appropriate behavior. Triage Information Reviewed: Yes Vital Signs: Initial Vital Signs Temp 98.1 F 10/12/17 12:19 Pulse 77 10/12/17 12:19 Resp 16 10/12/17 12:19 BP 97/47 10/12/17 12:19 Pulse Ox 100 10/12/17 12:19 <Myron Giles - Last Filed: 10/12/17 12:58> Vital Signs: Initial Vital Signs Temp 98.1 F 10/12/17 12:19 Pulse 77 10/12/17 12:19 Resp 16 10/12/17 12:19 BP 97/47 10/12/17 12:19 Pulse Ox 100 10/12/17 12:19 <Betzaida Valle - Last Filed: 10/12/17 13:48> Flu Course/Dx - Course Course Of Treatment: POC flu A positive. Advised rest, fluids, and ibuprofen prn. - Differential Dx/Diagnosis Provider Diagnoses: Influenza A <Myron Giles - Last Filed: 10/12/17 12:58> Discharge - Sign-Out/Discharge Documenting (check all that apply): Discharge - Billing Disposition and Condition Condition: STABLE Disposition: HOME <Myron Giles - Last Filed: 10/12/17 12:58> - Billing Disposition and Condition Condition: STABLE Disposition: HOME <Betzaida Valle - Last Filed: 10/12/17 13:48> - Discharge Plan Condition: Stable Disposition: HOME Patient Education Materials: Influenza (ED) Forms: *Work Release Referrals: No Primary Care Phys,NOPCP [Primary Care Provider] - Additional Instructions: If you develop a fever, shortness of breath, chest pain, new or worsening symptoms - please call your PCP or go to the ED. Attestation Statement User Type: Provider - I was available for consult. This patient was seen by the [facility]. The patient was not presented to, seen by, or examined by me. -Ree <Betzaida Valle - Last Filed: 10/12/17 13:48>
== END 2017-10-12 13:01 | disposition home or self-care (01) ==
LOC: UCCORT 12:03
DX: M79.1 Myalgia (principal); J02.9 Acute pharyngitis, unspecified; R11.0 Nausea; F31.9 Bipolar disorder, unspecified; F17.290 Nicotine dependence, other tobacco product, uncomplicated
CPT/HCPCS: 87502; 99211; G0463

== ENCOUNTER 2017-10-25 13:06 | Emergency (ER) | payer OTHER ==
[2017-10-25 14:23] VITALS: BP 108/55
--- NOTE | 2017-10-25 15:00 | UC ---
Back Pain HPI - HPI Summary HPI Summary: 6 days of off and on low right back pain, noticed with lifting and bending. 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 No radiation of pain, no associated weakness or paresthesias, no weakness. No relief with ibu or acetaminophen. Sleep not disrupted by pain. Recent flu resolved. Low grade fever noted here: does not feel unwell, and has no associated symptoms. No sore throat, cough, headache, abdominal pain. - History of Current Complaint Chief Complaint: UCBackPain Stated Complaint: BACK PAIN Time Seen by Provider: 10/25/17 14:56 Hx Obtained From: Patient Hx Last Menstrual Period: 09/24/17 Onset/Duration: Gradual Onset, Lasting Days - 6 Timing: Intermittent, Lasting Hours Severity Initially: Moderate Severity Currently: Mild Pain Intensity: 4 Pain Scale Used: 0-10 Numeric Character: Aching Aggravating Factor(s): Lifting, Bending, Walking Alleviating Factor(s): Rest Associated Signs And Symptoms: Positive: Negative - Risk Factors AAA Risk Factors: Negative TAD Risk Factors: Negative Cauda Equina Risk Factors: Negative Epidural Abscess Risk Factors: Negative - Allergies/Home Medications Allergies/Adverse Reactions: Allergies Allergy/AdvReac Type Severity Reaction Status Date / Time amoxicillin Allergy Rash Verified 10/25/17 14:24 PINK DYE Allergy Severe Anaphylatic Uncoded 10/25/17 14:24 Shock Home Medications: Home Medications Acetaminophen [Acetaminophen Extra Strength] 1,000 mg PO Q6HR PRN 10/25/17 [ History Confirmed 10/25/17] FLUoxetine CAP* [Prozac CAP*] 40 mg PO DAILY 10/25/17 [History Confirmed ] PMH/Surg Hx/FS Hx/Imm Hx Psychological History: Depression, Other - Personality disorder (borderline) Other Psychological History: borderline personality disorder. - Surgical History Surgical History: Yes Surgery Procedure, Year, and Place: lymph node removed from head - Family History Known Family History: Positive: Diabetes - mother Negative: Cardiac Disease, Hypertension - Social History Occupation: Employed Full-time Lives: Dormitory/Roommates Alcohol Use: Occasionally Alcohol Amount: 1/2 glass wine tonight Substance Use Type: None Smoking Status (MU): Light Every Day Tobacco Smoker Type: eCigarettes Amount Used/How Often: 1 pack per day Have You Smoked in the Last Year: Yes Household Exposure Type: Cigarettes - Immunization History Most Recent Influenza Vaccination: none Most Recent Tetanus Shot: 01/21 Most Recent Pneumonia Vaccination: no Review of Systems Constitutional: Fever Skin: Negative Eyes: Negative ENT: Negative Respiratory: Negative Cardiovascular: Negative Gastrointestinal: Negative Genitourinary: Negative Motor: Negative Neurovascular: Negative Musculoskeletal: Decreased ROM, Myalgia Neurological: Negative Psychological: Negative Is Patient Immunocompromised?: No All Other Systems Reviewed And Are Negative: No Physical Exam Triage Information Reviewed: Yes Appearance: Well-Appearing, Pain Distress - minimal Vital Signs: Initial Vital Signs Temp 100.6 F 10/25/17 14:13 Pulse 86 10/25/17 14:13 Resp 18 10/25/17 14:13 BP 108/55 10/25/17 14:13 Pulse Ox 98 10/25/17 14:13 ENT: Positive: Pharynx normal, TMs normal Neck: Positive: Supple, Nontender, No Lymphadenopathy Respiratory: Positive: Lungs clear, Normal breath sounds Cardiovascular: Positive: RRR, No Murmur Abdomen Description: Positive: Nontender, No Organomegaly, Soft. Negative: CVA Tenderness (R), CVA Tenderness (L) Musculoskeletal: Positive: Strength Intact, ROM Limited @ - mild pain in right obliques with forward flexion and lateral bending Neurological: Positive: Alert, Muscle Tone Normal Psychological Exam: Normal Skin Exam: Normal Diagnostics - Laboratory Diagnostic Studies Completed/Ordered: UA negative for blood, WBC's Back Pain Course/Dx - Course Course Of Treatment: rest, nsaid's for relief of low back strain. Clinically, this is resolving. - Differential Dx/Diagnosis Provider Diagnoses: low back strain, resolving. Discharge - Sign-Out/Discharge Documenting (check all that apply): Discharge - Discharge Plan Condition: Stable Disposition: HOME Patient Education Materials: Low Back Strain (ED) Forms: *Work Release Referrals: No Primary Care Phys,NOPCP [Primary Care Provider] - Additional Instructions: Increased use of ibuprofen might give more pain relief. I suggest 600mg three times daily with food. Rest and stretch to relieve muscle spasm. Take caution with lifting over the next several weeks to avoid a repeat strain. - Billing Disposition and Condition Condition: STABLE Disposition: HOME
== END 2017-10-25 15:33 | disposition home or self-care (01) ==
LOC: UCCORT 13:06
DX: S39.012A Strain of muscle, fascia and tendon of lower back, initial encounter (principal); X50.9XXA Other and unspecified overexertion or strenuous movements or postures, initial encounter; Y92.9 Unspecified place or not applicable; F17.290 Nicotine dependence, other tobacco product, uncomplicated; Z88.3 Allergy status to other anti-infective agents
CPT/HCPCS: 81003; 99211; G0463

== ENCOUNTER 2017-11-01 08:18 | Emergency (ER) | payer OTHER ==
[2017-11-01 08:45] VITALS: BP 98/50
--- NOTE | 2017-11-01 09:03 | UC ---
Abdominal Pain Female HPI - HPI Summary HPI Summary: 22 yo female with nausea/vomiting x 2 since last PM daughter ill x 3 days with vomiting no fever no abd pain no UTI symptoms - History of Current Complaint Chief Complaint: UCGI Stated Complaint: VOMITING Time Seen by Provider: 11/01/17 08:47 Hx Obtained From: Patient Hx Last Menstrual Period: 10/05/17 Onset/Duration: Gradual Onset Timing: Constant Severity Initially: Mild Severity Currently: Mild Pain Intensity: 0 Pain Scale Used: 0-10 Numeric Aggravating Factor(s): Food Alleviating Factor(s): Nothing Associated Signs and Symptoms: Positive: Nausea, Vomiting Allergies/Adverse Reactions: Allergies Allergy/AdvReac Type Severity Reaction Status Date / Time amoxicillin Allergy Rash Verified 11/01/17 08:46 PINK DYE Allergy Severe Anaphylatic Uncoded 11/01/17 08:46 Shock PMH/Surg Hx/FS Hx/Imm Hx Previously Healthy: Yes - Surgical History Surgical History: Yes Surgery Procedure, Year, and Place: lymph node removed from head - Family History Known Family History: Positive: Diabetes - mother Negative: Cardiac Disease, Hypertension - Social History Alcohol Use: Occasionally Alcohol Amount: 1/2 glass wine tonight Substance Use Type: None Smoking Status (MU): Light Every Day Tobacco Smoker Type: eCigarettes Amount Used/How Often: 1 pack per day Have You Smoked in the Last Year: Yes Household Exposure Type: Cigarettes - Immunization History Most Recent Influenza Vaccination: none Most Recent Tetanus Shot: 01/21 Most Recent Pneumonia Vaccination: no Review of Systems Constitutional: Negative Skin: Negative Eyes: Negative ENT: Negative Respiratory: Negative Cardiovascular: Negative Gastrointestinal: Vomiting, Nausea Genitourinary: Negative Motor: Negative Neurovascular: Negative Musculoskeletal: Negative Neurological: Negative Psychological: Negative Is Patient Immunocompromised?: No All Other Systems Reviewed And Are Negative: Yes Physical Exam Triage Information Reviewed: Yes Appearance: Well-Appearing, No Pain Distress, Well-Nourished Vital Signs: Initial Vital Signs Temp 97.9 F 11/01/17 08:41 Pulse 82 11/01/17 08:41 Resp 18 11/01/17 08:41 BP 98/50 11/01/17 08:41 Pulse Ox 99 11/01/17 08:41 Vital Signs Reviewed: Yes Eyes: Positive: Conjunctiva Clear ENT: Positive: Hearing grossly normal, TMs normal. Negative: Nasal congestion, Nasal drainage, Tonsillar swelling, Tonsillar exudate, Trismus, Muffled voice, Hoarse voice Neck: Positive: Supple, Nontender, No Lymphadenopathy Respiratory: Positive: Lungs clear, Normal breath sounds, No respiratory distress, No accessory muscle use Cardiovascular: Positive: RRR, No Murmur Abdomen Description: Positive: Nontender, No Organomegaly, Soft. Negative: CVA Tenderness (R), CVA Tenderness (L) Bowel Sounds: Positive: Present Abd Pain Female Course/Dx - Differential Dx/Diagnosis Provider Diagnoses: gastritis. suspect viral Discharge - Sign-Out/Discharge Documenting (check all that apply): Discharge/Admit/Transfer - Discharge Plan Condition: Stable Disposition: HOME Prescriptions: Ondansetron TAB* [Zofran Tab*] 4 mg PO Q6H PRN #8 tab PRN Reason: Nausea Patient Education Materials: Acute Nausea and Vomiting (ED) Forms: *Work Release Referrals: No Primary Care Phys,NOPCP [Primary Care Provider] - - Billing Disposition and Condition Condition: STABLE Disposition: HOME
== END 2017-11-01 09:16 | disposition home or self-care (01) ==
LOC: UCCORT 08:18
DX: K29.70 Gastritis, unspecified, without bleeding (principal); F17.290 Nicotine dependence, other tobacco product, uncomplicated
CPT/HCPCS: 99212; G0463

== ENCOUNTER → 2018-03-07 10:44 | Emergency (ER) | payer OTHER ==
[2018-03-07 10:47] VITALS: BP 103/54
--- OUTSIDE RECORDS SUMMARY | 2018-03-07 10:51 | XMS REPORT | Continuity of Care Document ---
:1995 Author Organization [facility] Care Team Providers Name Role Phone DALILA RUIZ Admitting Physician DALILA RUIZ Attending Physician Allergies and Intolerances Code Code System Allergy Type Reaction Severity Start End Date Status Substance Date RXNorm Kendrick Dye Drug hives facial Unknown Active allergy swelling (disorder) Medications RxNorm Medication Dose Route Instructions Start Date End Date Status 215244 24 HR lamotrigine 100 mg oral orally every day Active 100 MG Extended Release Oral Tablet 045071 Clindamycin 300 MG 300 mg oral orally 3 times per Active Oral Capsule day (10 days) 888403 Fluoxetine 40 MG 40 mg oral orally every day Active Oral Capsule Problems No Data in the system Procedures No data in the system Results Laboratory Results Order: RAPID GROUP A STREP TEST Specimen Source: Body Site: Legend: (G,H)=High, (GG,HH,CH,#H)=Above High Threshold, (#,L) =Low, (##,CL,#L,LL)=Below Low Threshold, (C,CC,CA,#A,A)=Abnormal LOINC Test Result Flag Range Units Date 02867-6 1S pyo Ag Throat Ql NEGATIVE NEGATIVE 01/29/2018 20:05 1Methodology: Chromatographic Immunoassay Performing Lab Footnotes:[facility] - [id number] - [address] [place] [address] JOVANI WILLARD Microbiology Results w Susceptibilities Order: CULTURE THROAT-COMPREHENSIVE Specimen Source: Swab Body Site: Entire throat (surface region of neck)Isolate #1:1Streptococcus pyogenes (Group A) (Several)Performing Lab Footnotes:[facility] - [id number] - [address] [place] [address] JOVANI [id number] Social History Code Code System Social History Description Dates Observed Observation [id number] SNOMED CT Current Smoking Current some day Status smoker UNK AdministrativeGender Sex Assigned At Unknown Vital Signs Code Code System Vitals Value Date 8310-5 LOINC Body Temperature 98.5 [degF] 01/29/2018 8865-8 LOINC Pulse Rate 91 {beats}/min 01/29/2018 9279-1 LOINC Respiratory Rate 16 /min 01/29/2018 32841-1 LOINC O2% BldC Oximetry 98 % 01/29/2018 8480-6 LOINC BP Systolic 103 mm[Hg] 01/29/2018 8462-4 LOINC BP Diastolic 66 mm[Hg] 01/29/2018 8302-2 LOINC Height 63 [in_i] 01/29/2018 93888-3 LOINC Weight 54.43 kg 01/29/2018 3140-1 LOINC Body surface area Derived from formula 1.56 m2 01/29/2018 07558-2 LOINC BMI (Body Mass Index) 21.2 kg/m2 01/29/2018 Goals Section No data in the system Health Concerns No data in the systemEncounter Diagnosis Date Code Code System Diagnosis Status J03.90 ICD10 ACUTE TONSILLITIS UNSPECIFIED Active Advance Directives No Data in the System Family History Family History Unknown Functional Status Code Functional Condition Code System Date Status Independent adls [facility] 01/29/2018 Active Appears well nourished/hydrated [facility] 01/29/2018 Active Immunizations No data in the system Medical Equipment No data in the system Mental Status Code Cognitive Condition Code System Date Status Oriented x 3 [facility] 01/29/2018 Active Skin warm & dry [facility] 01/29/2018 Active Alert [facility] 01/29/2018 Active Assessment and Plan Assessments No data in the systemPlan Of Treatment No data in the systemPending Tests No data in the system Hospital Discharge Instructions No data in the system Reason for Visit Reason for Visit Sore Throat
--- NOTE | 2018-03-07 11:05 | ED ---
Psychiatric Complaint - HPI Summary HPI Summary: This patient is a 22 year old F presenting to [facility] accompanied by her friend with a chief complaint of depression since she stopped taking her medications over 2 months ago. She denies current SI, but did endorses she has felt passive SI without a plan a couple of days ago. Pt denies HI. She endorses anxiety about her situation; she moved from [place] and no longer has psychiatric support locally. Rx Prozac and Lamictal for mood disorder, OCD, anger issues, and depression. She denies hallucinations, and denies using drugs, alcohol, and smoking. - History Of Current Complaint Chief Complaint: EDMentalHealth Time Seen by Provider: 03/07/18 10:51 Hx Obtained From: Patient Onset/Duration: Gradual Onset, Lasting Weeks, Still Present Timing: Constant Severity Initially: Mild Severity Currently: Mild Character: Depressed, Anxious Aggravating Factor(s): Medication Non-compliance, Therapy Non-compliance Alleviating Factor(s): Nothing Associated Signs And Symptoms: Positive: Negative Related History: Positive For: Prior Psychiatric Issues Has Suicidal: Reports: Thoughts Has Homicidal: Denies: Thoughts - Allergies/Home Medications Allergies/Adverse Reactions: Allergies Allergy/AdvReac Type Severity Reaction Status Date / Time amoxicillin Allergy Rash Verified 03/07/18 10:47 PINK DYE Allergy Severe Anaphylatic Uncoded 03/07/18 10:47 Shock PMH/Surg Hx/FS Hx/Imm Hx Endocrine/Hematology History: Denies: Hx Diabetes Cardiovascular History: Denies: Hx Hypertension Respiratory History: Reports: Hx Asthma - with exercise GI History: Reports: Other GI Disorders - rectal bleeding, polyps History: Denies: Hx Dialysis Musculoskeletal History: Reports: Other Musculoskeletal History - broken big toe 3 mths ago Sensory History: Reports: Hx Contacts or Glasses Denies: Hx Deafness Opthamlomology History: Reports: Hx Contacts or Glasses EENT History: Denies: Hx Deafness Psychiatric History: Reports: Hx Depression, Other Psychiatric Issues/Disorders - OCD Denies: Hx Eating Disorder, Hx of Violent Episodes Against Others - Surgical History Surgery Procedure, Year, and Place: lymph node removed from head Infectious Disease History: No Infectious Disease History: Denies: History Other Infectious Disease, Traveled Outside the [place] in Last 30 Days - Family History Known Family History: Positive: Diabetes - mother Negative: Cardiac Disease, Hypertension - Social History Occupation: Employed Full-time Alcohol Use: Occasionally Hx Substance Use: No Substance Use Type: Reports: None Hx Tobacco Use: Yes Smoking Status (MU): Light Every Day Tobacco Smoker Type: eCigjulia Amount Used/How Often: 1 pack per day Have You Smoked in the Last Year: Yes Review of Systems Negative: Fever Positive: no symptoms reported Positive: Anxious, Depressed All Other Systems Reviewed And Are Negative: Yes Physical Exam - Summary Physical Exam Summary: Appearance: Well appearing, no pain distress Skin: warm, dry, reflects adequate perfusion Head/face: normal Eyes: EOMI, ARELY ENT: normal Neck: supple, non-tender Respiratory: CTA, breath sounds present Cardiovascular: RRR, pulses symmetrical Abdomen: non-tender, soft Bowel: present Musculoskeletal: normal, strength/ROM intact Neuro: normal, sensory motor intact, A&Ox3 Psych: depressed affect Triage Information Reviewed: Yes Vital Signs On Initial Exam: Initial Vitals Temp Pulse Resp BP Pulse Ox 97.3 F 81 16 103/54 99 03/07/18 10:45 03/07/18 10:45 03/07/18 10:45 03/07/18 10:45 03/07/18 10:45 Vital Signs Reviewed: Yes Diagnostics - Vital Signs Vital Signs Temp Pulse Resp BP Pulse Ox 03/07/18 10:45 97.3 F 81 16 103/54 99 - Laboratory Result Diagrams: 03/07/18 10:57 03/07/18 10:57 Lab Statement: Any lab studies that have been ordered have been reviewed, and results considered in the medical decision making process. Course/Dx - Course Course Of Treatment: A 22-year-old F presents to the ED with a CC of depression for 2 months. (+) passive SI recently but not currently, anxiety. (-) current SI , plan for SI, HI, hallucinations. PMHx OCD, anxiety, depression. Moved 2 months ago and has not had meds or psychiatric support since. In the ED course, pt was seen by and recommended to dc home. dr diaz sent her medications to pharmacy and to follow up as outpt. - Differential Dx/Clinical Impression Differential Diagnosis/HQI/PQRI: Positive: Anxiety, Depression Provider Diagnosis: Adjustment disorder Discharge - Sign-Out/Discharge Documenting (check all that apply): Patient Departure - discharge - Discharge Plan Condition: Stable Disposition: HOME Forms: *Work Release Referrals: No Primary Care Phys,NOPCP [Primary Care Provider] - - Billing Disposition and Condition Condition: STABLE Disposition: Home - Attestation Statements Document Initiated by Reena: Yes Documenting Scribe: Toni Lofton Provider For Whom Reena is Documenting (Include Credential): Dr. Geronimo Stevens MD Scribe Attestation: Toni Arrieta, scribed for Dr. Geronimo Stevens MD on 03/07/18 at 1435. Scribe Documentation Reviewed: Yes Provider Attestation: The documentation as recorded by the Toni velasquez accurately reflects the service I personally performed and the decisions made by me, Dr. Geronimo Stevens MD
[2018-03-07 11:07] LABS: ABS Basophils 0.1 10^3/ul (0-0.2); ABS Eosinophils 0.1 10^3/ul (0-0.6); ABS Lymphocytes 1.9 10^3/ul (1.0-4.8); ABS Monocytes 0.4 10^3/ul (0-0.8); ABS Nucleated RBC 0 10^3/ul; Eosinophil % 2.5 % (0-6); Hematocrit 36 % (35-47); Hemoglobin 12.2 g/dl (12.0-16.0); Lymphocyte % 42.6 % (25-47); Mean Corpuscular HGB Conc 34 g/dl (31-36); Mean Corpuscular Hemoglobin 30 pg (27-31); Mean Corpuscular Volume 89 fL (80-97); Mean Platelet Volume 8.2 um3 (7.4-10.4); Nucleated Red Blood Cells % 0.1; Platelet Count 255 10^3/ul (150-450); Red Blood Count 4.06 10^6/ul (4.00-5.40); Red Cell Distribution Width 14 % (10.5-15); White Blood Count 4.5 10^3/ul (3.5-10.8)
[2018-03-07 11:40] LABS: Urine Appearance Clear; Urine Blood Negative (Negative); Urine Color Yellow; Urine Ketones Negative (Negative); Urine Protein Negative (Negative); Urine Urobilinogen Negative (Negative)
== END | disposition home or self-care (01) ==
LOC: ED 10:44
DX: F43.20 Adjustment disorder, unspecified (principal); Z88.0 Allergy status to penicillin
CPT/HCPCS: 36415; 80053; 80307; 80320; 80329; 81003; 84443; 84702; 85025; 99284; G0480

== ENCOUNTER 2018-05-14 10:39 | Emergency (ER) | payer OTHER ==
[2018-05-14 10:45] VITALS: BP 111/57
--- NOTE | 2018-05-14 11:04 | UC ---
Respiratory Complaint HPI - HPI Summary HPI Summary: Ms. Hernández has had a couple of days of URI symtoms. Her throat is sore and she has nasal congestion as well as diffuse myalgias and a mild cough. - History of Current Complaint Chief Complaint: UCRespiratory Stated Complaint: FLU SYMPTOMS Time Seen by Provider: 05/14/18 10:48 Hx Obtained From: Patient Hx Last Menstrual Period: 04/22/18 Onset/Duration: Gradual Onset Timing: Constant Severity Initially: Mild Severity Currently: Moderate Pain Intensity: 8 Associated Signs And Symptoms: Positive: Fever, Chills, URI, Nasal Congestion, Hoarseness, Sinus Discomfort - Allergies/Home Medications Allergies/Adverse Reactions: Allergies Allergy/AdvReac Type Severity Reaction Status Date / Time amoxicillin Allergy Rash Verified 05/14/18 10:46 PINK DYE Allergy Severe Anaphylatic Uncoded 05/14/18 10:46 Shock Home Medications: Home Medications NK [No Home Medications Reported] 05/14/18 [History Confirmed 05/14/18] PMH/Surg Hx/FS Hx/Imm Hx Previously Healthy: Yes - Surgical History Surgical History: Yes Surgery Procedure, Year, and Place: lymph node removed from head - Family History Known Family History: Positive: Diabetes - mother Negative: Cardiac Disease, Hypertension - Social History Alcohol Use: Occasionally Alcohol Amount: 1/2 glass wine tonight Substance Use Type: None Smoking Status (MU): Light Every Day Tobacco Smoker Type: eCigarettes Amount Used/How Often: 1 pack per day Have You Smoked in the Last Year: Yes Household Exposure Type: Cigarettes - Immunization History Most Recent Influenza Vaccination: none Most Recent Tetanus Shot: 01/21 Most Recent Pneumonia Vaccination: no Review of Systems Constitutional: Fever, Chills Skin: Negative Eyes: Negative ENT: Sore Throat, Nasal Discharge, Sinus Congestion, Sinus Pain/Tenderness Respiratory: Cough Cardiovascular: Negative Neurological: Negative All Other Systems Reviewed And Are Negative: No Physical Exam - Summary Physical Exam Summary: She is nontoxic in appearance with stable vital signs Triage Information Reviewed: Yes Appearance: Well-Appearing, No Pain Distress, Well-Nourished Vital Signs: Initial Vital Signs Temp 97.5 F 05/14/18 10:43 Pulse 100 05/14/18 10:43 Resp 20 05/14/18 10:43 BP 111/57 05/14/18 10:43 Pulse Ox 100 05/14/18 10:43 Vital Signs Reviewed: Yes ENT Exam: Normal ENT: Positive: Pharyngeal erythema, Nasal drainage Neck: Positive: Supple Respiratory Exam: Normal Respiratory: Positive: Chest non-tender, Lungs clear, Normal breath sounds, No respiratory distress, No accessory muscle use Cardiovascular: Positive: RRR Neurological: Positive: Alert UC Diagnostic Evaluation - Laboratory O2 Sat by Pulse Oximetry: 100 Respiratory Course/Dx - Course Course Of Treatment: Ms. Hernández likely was a viral URI and I will treat her symptomatically. Her RST and influenza swabs were both negative. - Differential Dx/Diagnosis Provider Diagnoses: URI Discharge - Sign-Out/Discharge Documenting (check all that apply): Patient Departure All imaging exams completed and their final reports reviewed: Yes - Discharge Plan Condition: Stable Disposition: HOME Referrals: No Primary Care Phys,NOPCP [Primary Care Provider] - - Billing Disposition and Condition Condition: STABLE Disposition: Home
== END 2018-05-14 11:51 | disposition home or self-care (01) ==
LOC: UCEAST 10:39
DX: J06.9 Acute upper respiratory infection, unspecified (principal); F17.210 Nicotine dependence, cigarettes, uncomplicated; Z88.0 Allergy status to penicillin; Z91.02 Food additives allergy status
CPT/HCPCS: 87651; 99212; G0463

== ENCOUNTER → 2018-05-23 13:48 | Emergency (ER) | payer BC, OTHER ==
--- NOTE | 2018-05-23 15:05 | ED ---
Psychiatric Complaint - HPI Summary HPI Summary: Patient presents with worsening anxiety and OCD and intermittent thoughts of suicidal. She reports her anxiety and OCD have been gradually worsening over the past 6 months since she stopped her medications of fluoxetine 30mg daily and lamotrigine 100mg daily. She stopped these as she was feeling good and thought she could do fine without them. She was seen here 2-3 months ago for similar issue and was given a short supply of medication - Lamictal 25mg and Prozac 20mg for 30 days and a referral to [facility] however she is unable to connect with [facility] for counseling service due to multiple reschedules on both parties' parts and no refills of prescriptions. She reports she had a couple days of relief from the medication while taking it but otherwise has been slipping back into anxiety and OCD thoughts. She describes her OCD as impulses to repeatedly flip switches when she was younger however since after turning 18 y.o., this condition plagues her with invasive thoughts that sometimes entail violence, incest, other sexual thoughts that she does not want to have. Recently she was texting her fianc to share these details and these texts were accidentally read by her fianc's mother who took them out of context. This has pushed patient into further anxiety and distress past 3 days. She's been out of work for the past 2 weeks due to her anxiety and stress. She was able to establish an appointment tomorrow [facility] to see her therapist. She does not have a PCP or prescriber at this time. When asked what she would like today, she is on the fence about admission vs. outpt support. Her partner does admit she does worry she may act on impulsive thoughts while angry because she gets "crazy" in these moments. Pt reports she has no plans to act on SI and mostly trusts herself - feels safe at home with fidior and mom. Denies previous h/o suicide attempts but does report h/o cutting as a way to alleviate stress - none recently. Smokes 1 PPD - hasn't smoked in a couple of days - declines nicotine replacement at this time. No illicit drugs ETOH occasionally When asked about how she sri, she reports she sleeps during the day but then has issues sleeping at night. The other end of the spectrum is that she goes into a fit of anger. Never hurts herself or anyone during these. NOTE: denies medical hx of illness. Feels the same as in February 2018 - had labs drawn then - all WNL. Would prefer not to have labs today but willing to do so if needed. - History Of Current Complaint Chief Complaint: EDMentalHealth Time Seen by Provider: 05/23/18 14:11 Hx Obtained From: Patient, Family/Senior Medical Transcriptionist - edith Hx Last Menstrual Period: 04/22/18 - Allergies/Home Medications Allergies/Adverse Reactions: Allergies Allergy/AdvReac Type Severity Reaction Status Date / Time amoxicillin Allergy Rash Verified 05/23/18 13:58 PINK DYE Allergy Severe Anaphylatic Uncoded 05/14/18 10:46 Shock PMH/Surg Hx/FS Hx/Imm Hx Previously Healthy: Yes Endocrine/Hematology History: Denies: Hx Diabetes, Hx Thyroid Disease, Hx Anemia Cardiovascular History: Denies: Hx Hypertension Respiratory History: Reports: Hx Asthma - with exercise GI History: Reports: Other GI Disorders - rectal bleeding, polyps History: Denies: Hx Dialysis Musculoskeletal History: Reports: Other Musculoskeletal History - broken big toe 3 mths ago Sensory History: Reports: Hx Contacts or Glasses Denies: Hx Deafness Opthamlomology History: Reports: Hx Contacts or Glasses Psychiatric History: Reports: Hx Anxiety, Hx Depression, Other Psychiatric Issues/Disorders - OCD Denies: Hx Eating Disorder, Hx Suicide Attempt, Hx of Violent Episodes Against Others, Hx Substance Abuse - Surgical History Surgery Procedure, Year, and Place: lymph node removed from head Infectious Disease History: No Infectious Disease History: Denies: History Other Infectious Disease, Traveled Outside the [place] in Last 30 Days - Family History Known Family History: Positive: Diabetes - mother Negative: Cardiac Disease, Hypertension - Social History 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 Lives: With Family - edith olson Alcohol Use: Occasionally Alcohol Amount: 1/2 glass wine tonight Hx Substance Use: No Substance Use Type: Reports: None Hx Tobacco Use: Yes Smoking Status (MU): Current Every Day Smoker Type: eCigarettes Amount Used/How Often: 1 pack per day Have You Smoked in the Last Year: Yes Review of Systems Constitutional: Negative Negative: Fever, Chills, Fatigue Eyes: Negative ENT: Negative Cardiovascular: Negative Respiratory: Negative Gastrointestinal: Negative Genitourinary: Negative Musculoskeletal: Negative Skin: Negative Neurological: Negative Positive: Anxious All Other Systems Reviewed And Are Negative: Yes Physical Exam Triage Information Reviewed: Yes Vital Signs On Initial Exam: Initial Vitals Temp Pulse Resp BP Pulse Ox 98.1 F 95 16 120/54 100 05/23/18 13:54 05/23/18 13:54 05/23/18 13:54 05/23/18 13:54 05/23/18 13:54 Vital Signs Reviewed: Yes Appearance: Positive: Well-Appearing, No Pain Distress, Well-Nourished Skin: Positive: Warm, Skin Color Reflects Adequate Perfusion, Dry - no signs of self harm Head/Face: Positive: Normal Head/Face Inspection Eyes: Positive: Normal, EOMI, ARELY, Conjunctiva Clear ENT: Positive: Normal ENT inspection, Hearing grossly normal, Pharynx normal - mucosa moist Neck: Positive: Supple, Nontender, No Lymphadenopathy - no gross thyromegaly or nodules palpated Respiratory/Lung Sounds: Positive: Clear to Auscultation, Breath Sounds Present. Negative: Rales, Rhonchi, Wheezes Cardiovascular: Positive: Normal, RRR, S1, S2 Abdomen Description: Positive: Nontender, No Organomegaly, Soft Bowel Sounds: Positive: Present Musculoskeletal: Positive: Normal, Strength/ROM Intact Neurological: Positive: Normal, Sensory/Motor Intact, Alert, Oriented to Person Place, Time, CN Intact II-III, Reflexes Intact Psychiatric: Positive: Normal - pleasant, cooperative, euthymic, good eye contact, she appears comfortable with fiance in the room and vice versa - SI w/ o plan, no HI Diagnostics - Vital Signs Vital Signs Temp Pulse Resp BP Pulse Ox 05/23/18 13:54 98.1 F 95 16 120/54 100 - Laboratory Lab Statement: Any lab studies that have been ordered have been reviewed, and results considered in the medical decision making process. Course/Dx - Course Course Of Treatment: Suspect pt may be okay for d/c as she has a plan in place and no intentions to hurt herself but will defer to mental health evaluation to confirm or deny this suspicion. RENEE Weeks, in to see pt. Update: RENEE Weeks, spoke w/ Dr. Gee who is also in agreeance with pt's plan for d/c - will rx meds today and she has f/u with [facility] tomorrow. Advised linking herself with a prescriber for ongoing medications via psychiatry, PCP or even [facility] if the wait is beyond 30 days to see a rx'er. She is aware it is dangerous to stop prozac abruptly and will make sure to get a refill before rx runs out. NOTE: Dr. Gee recommends prozac 20mg daily and lamictal 100mg daily. Will send to [facility] in [place]. Again, pt has felt good on these meds in the past - no SE or ill outcomes - will monitor for adverse effects and f/u w/ MH, PCP or return to ED as needed. Pt and partner agree w/ plan. - Differential Dx/Clinical Impression Provider Diagnosis: Anxiety, OCD (obsessive compulsive disorder) Discharge - Sign-Out/Discharge Documenting (check all that apply): Patient Departure - Discharge Plan Condition: Stable Disposition: HOME Prescriptions: FLUoxetine CAP* [PROzac CAP*] 20 mg PO DAILY #30 cap lamoTRIgine TAB(*) [LaMICtal TAB(*)] 100 mg PO BEDTIME #30 tab Patient Education Materials: Generalized Anxiety Disorder (ED), Obsessive Compulsive Disorder (DC) Referrals: [facility] [Outside] [facility] [Outside] Additional Instructions: You have reported a history of anxiety and OCD that have worsened since stopping your medications over the past 6 months ago. These medications of been represcribed for you today but only in one months supply. It is very important to keep your appointment tomorrow with [facility] for counseling and seek prescriber referral as soon as possible. *If [facility] is unable to link you with a prescriber within 30 days, please contact [facility] to schedule an appointment for refill of medications in an effort to prevent lapse especially of your Prozac which can be dangerous to stop abruptly. They can also help to link you with a PCP in the area. *If in the meantime you develop any side effects from medication, please follow up with your [facility]/PCP/[facility] or return to the emergency department. *If in the meantime you develop suicidal or homicidal ideations, contact [facility] or return to the emergency department. - Billing Disposition and Condition Condition: STABLE Disposition: Home
[2018-05-23 17:00] VITALS: BP 112/68
== END | disposition home or self-care (01) ==
LOC: ED 13:48
DX: F41.9 Anxiety disorder, unspecified (principal); F42.9 Obsessive-compulsive disorder, unspecified; F17.290 Nicotine dependence, other tobacco product, uncomplicated
CPT/HCPCS: 99284

== ENCOUNTER 2018-08-15 10:37 | Emergency (ER) | payer SELFPAY ==
[2018-08-15 11:15] VITALS: BP 99/55
--- NOTE | 2018-08-15 11:44 | UC ---
UC General HPI - HPI Summary HPI Summary: Started w/ 1 wk of L ear pain, muscle aches, had 2 days of sore throat, and now developed cough w/ nasal congestion. has tried some otc meds w/ no relief. nothing makes it worse. pt is also trying to get and would like urine hcg. - History of Current Complaint Chief Complaint: UCEar Stated Complaint: EAR COMPLAINT,BODY ACHES Time Seen by Provider: 08/15/18 11:31 Hx Obtained From: Patient Hx Last Menstrual Period: 07/09/2018 Pain Intensity: 4 Associated Signs & Symptoms: Positive: Nausea. Negative: Dizziness, Vomiting, Wheezing, Weakness - Allergy/Home Medications Allergies/Adverse Reactions: Allergies Allergy/AdvReac Type Severity Reaction Status Date / Time amoxicillin Allergy Rash Verified 08/15/18 11:06 PINK DYE Allergy Severe Anaphylatic Uncoded 08/15/18 11:06 Shock Home Medications: Home Medications FLUoxetine CAP* [PROzac CAP*] 40 mg PO DAILY 08/15/18 [History Confirmed ] lamoTRIgine TAB(*) [LaMICtal TAB(*)] 100 mg PO DAILY 08/15/18 [History Confirmed 08/15/18] PMH/Surg Hx/FS Hx/Imm Hx Previously Healthy: Yes - Surgical History Surgical History: Yes Surgery Procedure, Year, and Place: lymph node removed from head - Family History Known Family History: Positive: Diabetes - mother Negative: Cardiac Disease, Hypertension - Social History Alcohol Use: Occasionally Alcohol Amount: 1/2 glass wine tonight Substance Use Type: None Smoking Status (MU): Current Every Day Smoker Type: eCigarettes Amount Used/How Often: 1 pack per day Have You Smoked in the Last Year: Yes Household Exposure Type: Cigarettes - Immunization History Most Recent Influenza Vaccination: none Most Recent Tetanus Shot: 01/21 Most Recent Pneumonia Vaccination: no Review of Systems All Other Systems Reviewed And Are Negative: Yes Constitutional: Positive: Fever, Chills. Negative: Fatigue Skin: Negative: Rash ENT: Positive: Sore Throat, Ear Ache - R, Sinus Congestion. Negative: Sinus Pain/Tenderness Respiratory: Positive: Cough. Negative: Shortness Of Breath, Other - denies wheezing Cardiovascular: Negative: Chest Pain Gastrointestinal: Positive: Nausea - once. Negative: Vomiting, Diarrhea Genitourinary: Negative: Dysuria Neurological: Negative: Headache Physical Exam Triage Information Reviewed: Yes Appearance: Well-Appearing Vital Signs: Initial Vital Signs Temp 98.3 F 08/15/18 11:04 Pulse 80 08/15/18 11:04 Resp 17 08/15/18 11:04 BP 99/55 08/15/18 11:04 Pulse Ox 99 08/15/18 11:04 Vital Signs Reviewed: Yes Eyes: Positive: Conjunctiva Clear ENT: Positive: Pharynx normal, TMs normal, Uvula midline. Negative: Nasal congestion Neck: Positive: Supple, Nontender Respiratory Exam: Normal Cardiovascular Exam: Normal Neurological: Positive: Alert Skin: Negative: Rashes Course/Dx - Course Course Of Treatment: flu like illness x7 days w/ no signs of bacterial source. Lungs clear, ears clear and pain likely from radiation of sore throat which has resolved 2 days ago. Vitals good. Of note pt. is trying to get and requested Urine HCG; neg. today. UA was performed in error. - Differential Dx - Multi-Symptom Differential Diagnoses: Other - uri, influenza, pneumonia - Diagnoses Provider Diagnosis: Flu-like symptoms Discharge - Sign-Out/Discharge Documenting (check all that apply): Patient Departure All imaging exams completed and their final reports reviewed: No Studies - Discharge Plan Condition: Good Disposition: HOME Prescriptions: Acetaminoph/Cod 120/12 mg LIQ* [Tylenol/Codeine 120/12 LIQ*] 10 ml PO BEDTIME PRN 3 Days #30 ml MDD 10 mL PRN Reason: Cough Patient Education Materials: Upper Respiratory Infection (ED) Referrals: No Primary Care Phys,NOPCP [Primary Care Provider] - Additional Instructions: If any symptoms worsen please return. - Billing Disposition and Condition Condition: GOOD Disposition: Home
[2018-08-15 12:30] LABS: Influenza A Molecular NEGATIVE (Negative); Influenza B Molecular NEGATIVE (Negative)
== END 2018-08-15 12:43 | disposition home or self-care (01) ==
LOC: UCEAST 10:37
DX: H92.02 Otalgia, left ear (principal); M79.10 Myalgia, unspecified site; J02.9 Acute pharyngitis, unspecified; R05 Cough; R09.81 Nasal congestion; R11.0 Nausea; F17.290 Nicotine dependence, other tobacco product, uncomplicated; Z88.0 Allergy status to penicillin; Z91.09 Other allergy status, other than to drugs and biological substances
CPT/HCPCS: 81003; 84702; 99211; G0463

== ENCOUNTER 2018-08-30 11:56 | Emergency (ER) | payer OTHER ==
[2018-08-30 12:11] VITALS: BP 101/59
--- NOTE | 2018-08-30 12:45 | UC ---
UC General HPI - HPI Summary HPI Summary: Patient is 1- days over due for her period which has always been regular, she is experiencing nausea, hightened smell, and fatigue, is worried about . - History of Current Complaint Chief Complaint: UCGI Stated Complaint: DIZZY,NAUSEOUS Time Seen by Provider: 08/30/18 12:37 Hx Obtained From: Patient Hx Last Menstrual Period: 07/24/18 Onset/Duration: Sudden Onset, Lasting Days Timing: Constant Onset Severity: Mild Current Severity: None Pain Intensity: 0 Associated Signs & Symptoms: Positive: Headache, Nausea, Vomiting - Allergy/Home Medications Allergies/Adverse Reactions: Allergies Allergy/AdvReac Type Severity Reaction Status Date / Time amoxicillin Allergy Rash Verified 08/30/18 12:11 PINK DYE Allergy Severe Anaphylatic Uncoded 08/30/18 12:11 Shock PMH/Surg Hx/FS Hx/Imm Hx Previously Healthy: Yes - Surgical History Surgical History: Yes Surgery Procedure, Year, and Place: lymph node removed from head - Family History Known Family History: Positive: Diabetes - mother Negative: Cardiac Disease, Hypertension - Social History Alcohol Use: Occasionally Alcohol Amount: 1/2 glass wine tonight Substance Use Type: None Smoking Status (MU): Former Smoker Type: eCigarettes Amount Used/How Often: 1 pack per day Have You Smoked in the Last Year: Yes Household Exposure Type: Cigarettes - Immunization History Most Recent Influenza Vaccination: none Most Recent Tetanus Shot: 01/21 Most Recent Pneumonia Vaccination: no Review of Systems All Other Systems Reviewed And Are Negative: Yes Constitutional: Positive: Fatigue Skin: Positive: Negative Eyes: Positive: Negative ENT: Positive: Negative Respiratory: Positive: Negative Cardiovascular: Positive: Negative Gastrointestinal: Positive: Vomiting, Nausea Genitourinary: Positive: Frequency Motor: Positive: Negative Neurovascular: Positive: Negative Musculoskeletal: Positive: Negative Neurological: Positive: Headache Psychological: Positive: Negative Is Patient Immunocompromised?: No Physical Exam Triage Information Reviewed: Yes Appearance: No Pain Distress, Well-Nourished, Ill-Appearing Vital Signs: Initial Vital Signs Temp 97.8 F 08/30/18 12:06 Pulse 101 08/30/18 12:06 Resp 16 08/30/18 12:06 BP 101/59 08/30/18 12:06 Pulse Ox 99 08/30/18 12:06 Vital Signs Reviewed: Yes Eye Exam: Normal ENT Exam: Normal Dental Exam: Normal Neck exam: Normal Respiratory Exam: Normal Cardiovascular Exam: Normal Abdominal Exam: Normal Abdomen Description: Positive: Nontender, No Organomegaly, Soft, CVA Tenderness (R) - neg, CVA Tenderness (L) - neg Musculoskeletal Exam: Normal Neurological Exam: Normal Psychological Exam: Normal Skin Exam: Normal Course/Dx - Course Course Of Treatment: he obtained, exam performed, meds reviewed, UA and Urine obtained UA neg, trace ketones noted. - Differential Dx - Multi-Symptom Differential Diagnoses: Urinary Tract Infection - Diagnoses Provider Diagnosis: Nausea alone, Metrorrhagia, Negative test Discharge - Sign-Out/Discharge Documenting (check all that apply): Patient Departure All imaging exams completed and their final reports reviewed: No Studies - Discharge Plan Condition: Stable Disposition: HOME Prescriptions: Ondansetron ODT TAB* [Zofran 4 MG Odt TAB*] 4 mg PO Q8H PRN #6 tab.odt PRN Reason: Nausea Patient Education Materials: Acute Nausea and Vomiting (ED) Referrals: No Primary Care Phys,NOPCP [Primary Care Provider] - Quiana Larios MD [Medical Doctor] - Additional Instructions: 1. take the zofran as needed for nausea 2. If you don't get a period in the next week please follow up with a [employer] for further evaluation. - Billing Disposition and Condition Condition: STABLE Disposition: Home
== END 2018-08-30 13:10 | disposition home or self-care (01) ==
LOC: UCEAST 11:56
DX: N39.0 Urinary tract infection, site not specified (principal); Z88.0 Allergy status to penicillin; Z32.02 Encounter for pregnancy test, result negative
CPT/HCPCS: 81003; 84702; 99212; G0463

== ENCOUNTER 2019-02-10 13:26 | Emergency (ER) | payer OTHER ==
[2019-02-10 14:53] LABS: ABS Eosinophils 0.1 10^3/ul (0-0.6); ABS Monocytes 0.7 10^3/ul (0-0.8); Eosinophil % 1.9 %; Hematocrit 37 % (35-47); Hemoglobin 12.1 g/dL (12.0-16.0); Lymphocyte % 34.2 %; Mean Corpuscular HGB Conc 33 g/dL (31-36); Mean Corpuscular Hemoglobin 29 pg (27-31); Mean Corpuscular Volume 87 fL (80-97); Mean Platelet Volume 8.1 fL (7.4-10.4); Platelet Count 255 10^3/uL (150-450); Red Blood Count 4.18 10^6 /uL (3.70-4.87); Red Cell Distribution Width 15 % (10-15); White Blood Count 5.8 10^3/uL (3.5-10.8)
--- NOTE | 2019-02-10 14:58 | ED ---
GI/ HPI - HPI Summary HPI Summary: This patient is a 23 year old F presenting to [facility] with a chief complaint of bloody stool for approx. 2 weeks. She describes it as intermittent bright red blood with bowel movements. Pt reports that she has abdominal cramping right before having a BM. Patient reports nausea, and lightheadedness today at work. Patient denies vomiting. Pt has similar symptoms before, at 18 was told she may have a polyp. Family history of Crohn's or ulcerative colitis. No weight gain or weight loss recently no fevers. - History of Current Complaint Chief Complaint: EDGIBleed Time Seen by Provider: 02/10/19 14:20 Stated Complaint: PASSING BLOOD CLOTS AND ABD PAIN PER PT Hx Obtained From: Patient Hx Last Menstrual Period: 07/24/18 Onset/Duration: Started Weeks Ago Timing: Intermittent Severity: Severe Current Severity: None Pain Intensity: 7 Pain Characteristics: Cramping Associated Signs and Symptoms: Positive: Nausea, Blood w/Stool, Lightheadedness. Negative: Vomiting - Additional Pertinent History Primary Care Physician: [id number] - Allergy/Home Medications Allergies/Adverse Reactions: Allergies Allergy/AdvReac Type Severity Reaction Status Date / Time amoxicillin Allergy Rash Verified 02/10/19 13:32 PINK DYE Allergy Severe Anaphylatic Uncoded 02/10/19 13:32 Shock PMH/Surg Hx/FS Hx/Imm Hx Endocrine/Hematology History: Denies: Hx Diabetes, Hx Thyroid Disease, Hx Anemia Cardiovascular History: Denies: Hx Hypertension Respiratory History: Reports: Hx Asthma - with exercise Denies: Hx Chronic Obstructive Pulmonary Disease (COPD) GI History: Reports: Other GI Disorders - rectal bleeding, polyps Denies: Hx Ulcer History: Denies: Hx Dialysis Musculoskeletal History: Reports: Other Musculoskeletal History - broken big toe 3 mths ago Sensory History: Reports: Hx Contacts or Glasses Denies: Hx Deafness Opthamlomology History: Reports: Hx Contacts or Glasses Psychiatric History: Reports: Hx Anxiety, Hx Depression, Other Psychiatric Issues/Disorders - OCD Denies: Hx Eating Disorder, Hx Suicide Attempt, Hx of Violent Episodes Against Others, Hx Substance Abuse - Surgical History Surgery Procedure, Year, and Place: lymph node removed from head Infectious Disease History: No Infectious Disease History: Denies: Hx Hepatitis, Hx Human Immunodeficiency Virus (HIV), History Other Infectious Disease, Traveled Outside the [place] in Last 30 Days - Family History Known Family History: Positive: Diabetes - mother Negative: Cardiac Disease, Hypertension - Social History Alcohol Use: Rare Alcohol Amount: 1/2 glass wine tonight Hx Substance Use: No Substance Use Type: Reports: None Hx Tobacco Use: Yes Smoking Status (MU): Light Every Day Tobacco Smoker Type: eCigarettes Amount Used/How Often: 1 pack per day Have You Smoked in the Last Year: Yes Review of Systems Positive: Abdominal Pain - cramping, Nausea, Other - bloody stool. Negative: Vomiting Neurological: Other - pos - lightheadness All Other Systems Reviewed And Are Negative: Yes Physical Exam - Summary Physical Exam Summary: Constitutional: Well-developed, Well-nourished, Alert. (-) Distressed Skin: Warm, Dry HENT: Normocephalic; Atraumatic Eyes: Conjunctiva normal Neck: Musculoskeletal ROM normal neck. (-) JVD, (-) Stridor, (-) Nuchal rigidity Cardio: Rhythm regular, rate normal, Heart sounds normal; Intact distal pulses; Radial pulses are 2+ and symmetric. (-) Murmur Pulmonary/Chest wall: Effort normal. (-) Respiratory distress, (-) Wheezes, (-) Rales Abd: Soft, (-) tenderness, (-) Distension, (-) Guarding, (-) Rebound Rectal: brown stool no external hemorrhoids Musculoskeletal: (-) Edema Lymph: (-) Cervical adenopathy Neuro: Alert, Oriented x3 Psych: Mood and affect Normal Triage Information Reviewed: Yes Vital Signs On Initial Exam: Initial Vitals Temp Pulse Resp BP Pulse Ox 98.6 F 96 16 115/64 97 02/10/19 13:28 02/10/19 13:28 02/10/19 13:28 02/10/19 13:28 02/10/19 13:28 Vital Signs Reviewed: Yes Diagnostics - Vital Signs Vital Signs Temp Pulse Resp BP Pulse Ox 02/10/19 13:28 98.6 F 96 16 115/64 97 - Laboratory Lab Results: Lab Results 02/10/19 Range/Units 14:36 WBC 5.8 (3.5-10.8) 10^3/uL RBC 4.18 (3.70-4.87) 10^6 /uL Hgb 12.1 (12.0-16.0) g/dL Hct 37 (35-47) % MCV 87 (80-97) fL MCH 29 (27-31) pg MCHC 33 (31-36) g/dL RDW 15 (10-15) % Plt Count 255 (150-450) 10^3/uL MPV 8.1 (7.4-10.4) fL Neut % (Auto) 52.0 % Lymph % (Auto) 34.2 % Isabella % (Auto) 11.1 % Eos % (Auto) 1.9 % Baso % (Auto) 0.8 % Absolute Neuts (auto) 3.0 (1.5-7.7) 10^3/ul Absolute Lymphs (auto) 2.0 (1.0-4.8) 10^3/ul Absolute Monos (auto) 0.7 (0-0.8) 10^3/ul Absolute Eos (auto) 0.1 (0-0.6) 10^3/ul Absolute Basos (auto) 0.0 (0-0.2) 10^3/ul Absolute Nucleated RBC 0.0 10^3/ul Nucleated RBC % 0.0 Result Diagrams: 02/10/19 14:36 02/10/19 14:36 Lab Statement: Any lab studies that have been ordered have been reviewed, and results considered in the medical decision making process. Re-Evaluation - Re-Evaluation First Eval Re-Evaluation Time: 15:58 Change: Improved - Labs notable for a stable hemoglobin, fecal occult negative however this cannot r/o intermittent GI bleeding. We'll have her follow up with router operator return for worsening symptoms GIGU Course/Dx - Course Course Of Treatment: 23-year-old female presents with blood in stool. Rectal bleeding differential : Differential includes hemorrhoids, diverticulosis, AVM , mass lesion or cancer, inflammatory bowel disease, colitis, upper GI bleed. - Check CBC, stool brown without blood. Will discuss with GI regarding follow- up. - Diagnoses Provider Diagnoses: Bloody stool Discharge - Sign-Out/Discharge Documenting (check all that apply): Patient Departure - Discharge Patient Received Moderate/Deep Sedation with Procedure: No - Discharge Plan Condition: Stable Disposition: HOME Patient Education Materials: Melena (ED) Referrals: Oz Alvarado DO [Doctor of Osteopathy] - 3 Days Additional Instructions: You were seen in the emergency department for blood in your stool. Yoiur hemoglobin is stable. Please follow up with our router operator. Please return for worsening abdominal pain, bleeding, fevers, or if you're concerned. If any studies were not completed at the time of discharge you will be called with the relevant results. Please follow up with your primary care doctor in next 2-3 days and return to emergency department for worsening or concerning symptoms. - Billing Disposition and Condition Condition: STABLE Disposition: Home - Attestation Statements Document Initiated by Reena: Yes Documenting Emmettibe: Cecy Collazo Provider For Whom Reena is Documenting (Include Credential): Dr. Dago Nelson MD Scribe Attestation: Cecy Arrieta scribed for Dr. Dago Nelson MD on 02/10/19 at 1919. Scribe Documentation Reviewed: Yes Provider Attestation: The documentation as recorded by the Cecy velasquez accurately reflects the service I personally performed and the decisions made by me, Dr. Dago Nelson MD Status of Scribe Document: Viewed
[2019-02-10 15:09] LABS: Albumin 4.4 g/dL (3.2-5.2); Albumin/Globulin Ratio 1.6 (1-3); BUN/Creatinine Ratio 12.7 (8-20); Calcium 9.7 mg/dL (8.6-10.3); EGFR African American 109.1 (>60); EGFR Non-African American 90.2 (>60); Globulin 2.8 g/dL (2-4); Potassium 4.1 mmol/L (3.5-5.0); Total Bilirubin 0.2 mg/dL (0.2-1.0); Total Protein 7.2 g/dL (6.4-8.9)
[2019-02-10 16:27] VITALS: BP 102/57
== END 2019-02-10 16:26 | disposition home or self-care (01) ==
LOC: ED 13:26
DX: K92.1 Melena (principal); R11.0 Nausea; R42 Dizziness and giddiness; Z88.0 Allergy status to penicillin; F17.290 Nicotine dependence, other tobacco product, uncomplicated
CPT/HCPCS: 36415; 80053; 82270; 85025; 99283

== ENCOUNTER 2019-05-07 09:56 | Emergency (ER) | payer OTHER ==
--- OUTSIDE RECORDS SUMMARY | 2019-05-07 10:02 | XMS REPORT | Summary of Care ---
:1995 Author Organization [facility] Address [address] [facility] [place] [address] Care Team Providers Name Role Phone Elier Ackerman MD Primary Care Provider Reason for Visit Reason Comments Follow Up Encounter Details Date Type Department Care Team Description 03/28/2019 Office Visit [facility] Nelsy Armando, Irritable bowel Serenity Valdes Kaleva DIRECTOR OF ARCHIVES syndrome, unspecified [address] type (Primary Dx) [place] [address] [place] [address] [phone] Allergies Active Allergy Reactions Severity Noted Date Comments Amoxicillin Swelling 02/14/2019 Red Dye Hives 12/21/2014 documented as of this encounter (statuses as of 03/28/2019) Medications Medication Sig Dispensed Refills Start Date End Date Status fluoxetine (PROZAC) 20 Take 1 Cap by 30 Cap 3 12/21/2014 Active MG Oral Cap mouth DAILY. lamotrigine (LAMICTAL) Take 1 Tab by 30 Tab 3 12/21/2014 Active 25 MG Oral Tab mouth DAILY. budesonide (ENTOCORT Take 3 Caps by 90 Cap 1 03/28/2019 Active EC) 3 MG Oral CAPSULE mouth DAILY. ENTERIC COATED PARTICLESIndications: Irritable bowel syndrome, unspecified type documented as of this encounter (statuses as of 03/28/2019) Active Problems Problem Noted Date Depression 12/29/2014 documented as of this encounter (statuses as of 03/28/2019) Immunizations Name Administration Dates Next Due Influenza (IM) Preservative Free 05/03/2009 documented as of this encounter Social History Tobacco Use Types Packs/Day Years Used Date Former Smoker Smokeless Tobacco: Never Used Comments: pt vapes Alcohol Use Drinks/Week oz/Week Comments No 0 Standard drinks or equivalent 0.0 Sex Assigned at Date Recorded Not on file Job Start Date Occupation Industry Not on file Not on file Not on file Travel History Travel Start Travel End No recent travel history available. documented as of this encounter Last Filed Vital Signs Vital Sign Reading Time Taken Comments Blood Pressure 97/60 03/28/2019 3:35 PM EDT Pulse 89 03/28/2019 3:35 PM EDT Temperature - - Respiratory Rate - - Oxygen Saturation 96% 03/28/2019 3:35 PM EDT Inhaled Oxygen Concentration - - Weight 60.3 kg (133 lb) 03/28/2019 3:35 PM EDT Height 157.5 cm (5' 2") 03/28/2019 3:35 PM EDT Body Mass Index 24.33 03/28/2019 3:35 PM EDT documented in this encounter Patient Instructions Patient InstructionsCorNelsy león NP - 03/28/2019 3:30 PM EDT Follow up with PCP regarding reactive colitis and positive JASMINA testing. Need to have complete autoimmune work up. Requested Prescriptions Signed Prescriptions Disp Refills budesonide (ENTOCORT EC) 3 MG Oral CAPSULE ENTERIC COATED PARTICLES 90 Cap 1 Sig: Take 3 Caps by mouth DAILY. Return if symptoms worsen or fail to improve. documented in this encounter Progress Notes Nelsy Armando NP - 03/28/2019 3:30 PM EDT PATIENT: Beth Hernández : 1995 DATE OF SERVICE: 03/28/2019 REFERRING PRACTITIONER: Jeffrey PRIMARY CARE PROVIDER: Elier Ackerman CHIEF COMPLAINT: Chief Complaint Patient presents with Follow Up HISTORY OF PRESENT ILLNESS: eBth Hernández is a 23-y.o.-old female who presents for a follow up on rectal bleeding and test results. She reports improved but some abdominal pain. Notes that she has random body aches. No rectal bleeding. Has family hx of lupus. Reviewed test results. Patient denies anorexia, arthralgias, belching, chills, constipation, flatus, frequency, general epigastric discomfort, melena, nausea, sweats, vomiting, symptoms of obstruction, symptoms of anemia andweight loss. Previous visits for these symptoms: yes, last seen by career development consultant Treatment to date: none FH is negative for CRC in 1st degree relative. EGD - never Colonoscopy - 02/25/19 see below Capsule endoscopy - never Reviewed tests Admission on 02/25/2019, Discharged on 02/25/2019 Component Date Value Ref Range Status Urine Test (POCT) 02/25/2019 negative Final Qualitative Urine HCG Internal Con* 02/25/2019 acceptable Final Performed at: [facility] POCT Maximiliano Meadows MD, Laboratory Contact Center Specialist [address] [id number] Case Report 02/25/2019 Final Value:Surgical Pathology Case: [id number] Authorizing Provider: Salo Reyes MD Collected: 2018 09:29 AM Ordering Location: [facility] Received: 2018 10:37 AM Pathologist: Stephy Michael MD Specimens: 1) - OTHER (WRITE ON SPECIMEN), biopsy terminal ilium erosion 2) - OTHER (WRITE ON SPECIMEN), biopsy apthous ulcers recto-sigmoid FINAL DIAGNOSIS 02/25/2019 Final Value:This result contains rich text formatting which cannot be displayed here. Microscopic Description 02/25/2019 Final Value:This result contains rich text formatting which cannot be displayed here. Gross Description 02/25/2019 Final Value:This result contains rich text formatting which cannot be displayed here. GI Procedure 02/25/2019 Final Value:[facility] Patient Name: Beth Hernández Procedure Date: 02/25/2019 8:58 AM Date of : 1995 Admit Type: Outpatient Age: 23 Room: OR Gender: Female Note Status: Finalized Attending MD: SALO REYES JR, MD Instrument Name: [id number] Procedure: Colonoscopy Indications: Hematochezia Providers: SALO REYES JR, MD, Rae Clifton RN (Nurse) Referring MD: ELIER ACKERMAN MD (Referring MD) Medicines: See the Anesthesia note for documentation of the administered medications Complications: No immediate complications. Procedure: The patient's current medications and allergies were reviewed and recorded in the nurses notes. The patient was made aware of the risk of the procedure which can include: bleeding, infection, perforation, an adverse reaction to sedation, and a risk of missed lesions, among others. The patient appeared to understand. An opportunity for questions was provided, and an informed consent form was signed. The scope was passed under direct vision. Throughout the procedure, the patient's blood pressure, pulse EKG, and oxygen saturations were monitored continuously. The Colonoscope was introduced through the anus and advanced to the cecum, identified by appendiceal orifice and ileocecal valve. The colonoscopy was perform ed without difficulty. The patient tolerated the procedure well. The quality of the bowel preparation was good. Findings: The terminal ileum contained a few scattered non-bleeding erosions. Biopsies were taken with a cold forceps for histology. Multiple scattered non-bleeding aphthae were found in the rectum and in the sigmoid colon. Biopsies were taken with a cold forceps for histology. The exam was otherwise without abnormality. Impression: - A few erosions in the terminal ileum. Biopsied. - Aphtha in the rectum and in the sigmoid colon. Biopsied. - The examination was otherwise normal. Recommendation: - Continue present medications. - Await pathology results. - Repeat colonoscopy date to be determined after pending pathology results are reviewed for surveillance. - Return sooner if symptoms occur. Polyps can be missed. - Discharge patient to home. Procedure Code(s): --- Professional --- 41527, Colonoscopy, flexible; with biopsy, single or multiple Diagnosis Code(s): --- Professional --- K63.3, Ulcer of intestine K62.89, Other specified diseases of anus and rectum CPT copyright 2017 [employer]. All rights reserved. The codes documented in this report are preliminary and upon line assembly utility worker review may be revised to meet current compliance requirements. SALO REYES JR, MD 02/25/2019 9:39:36 AM This report has been signed electronically. Number of Addenda: 0 Note Init iated On: 02/25/2019 8:58 AM FINAL DIAGNOSIS 1. Small intestine, terminal ileum, erosions; biopsy: - Focal active ileitis - Negative for dysplasia 2. Colon, rectosigmoid, aphthous ulcers; biopsy: - Chronic mildly active colitis/proctitis - Negative for dysplasia Component Latest Ref Rng & Units 02/14/2019 02/14/2019 02/14/2019 02/14/2019201802/14/2019 02/14/2019 02/14/2019 02/14/2019 1:50 PM 1:50 PM 1:50 PM 1:50 PM 1:50 PM 1:50 PM 1:50 PM 1:50 PM 1:50 PM WBC COUNT 3.98 - 10.04 K/uL 4.94 RBC 3.93 - 5.22 M/UL 4.32 Hemoglobin 11.2 - 15.7 g/dL 12.5 Hematocrit 34.1 - 44.9 % 39.8 MCV 79.4 - 94.8 FL 92.1 MCH 25.6 - 32.2 PG 28.9 MCHC 32.2 - 35.5 g/dL 31.4 (L) Platelet Count 182 - 369 K/uL 282 MPV 9.4 - 12.3 FL 10.9 RDW 11.7 - 14.4 % 14.6 (H) NEUTROPHILS 34.0 - 71.1 % 45.6 Lymphocyte % 19.3 - 51.7 % 39.9 MONOCYTES 4.7 - 12.5 % 11.5 Eosinophils 0.7 - 5.8 % 2.0 Basophil % 0.1 - 1.2 % 0.8 nRBC % 0.0 - 0.2 % 0.0 Neutrophil # 1.56 - 6.13 K/UL 2.25 Lymphocyte # 1.18 - 3.74 K/UL 1.97 Monocyte # 0.24 - 0.86 K/UL 0.57 Eosinophil # 0.04 - 0.36 K/UL 0.10 Basophil # 0.01 - 0.08 K/UL 0.04 Immature Gran % 0.0 - 0.4 % 0.2 Immature Gran # 0.00 - 0.03 K/uL 0.01 NRBC # 0.00 - 0.12 K/uL 0.00 ANCA IBD, SCREEN Negative Negative Myeloperoxidase Ab <1.0 AI <1.0 S. CEREVISIAE AB (ASCA) IGA <=20.0 U 15.9 S. CEREVISIAE AB (ASCA) IGG <=20.0 U 19.7 Proteinase 3 Ab <1.0 AI <1.0 Iron Serum 37 - 170 UG/DL 117 Iron Binding Capacity 261 - 478 UG/DL 379 % Saturation Calculation 20 - 50 % 31 Anti-Nuclear Ab Titer <1:40 TITER 1:160 (A) Jasmina Pattern SPECKLED (A) Ferritin 6.2 - 137.0 NG/ML 10.7 C-Reactive Protein <1.00 mg/dl <0.50 ESR 0 - 20 MM/HR 19 Cea <3.0 ng/ml 1.2 JASMINA Screen NEGATIVE POSITIVE (A) Past Medical History: Diagnosis Date Exercise-induced asthma Tendinitis of ankle Past Surgical History: Procedure Laterality Date BIOPSY, LYMPH NODE, DEEP COLONOSCOPY N/A 02/25/2019 Procedure: COLONOSCOPY with biopsy; Surgeon: Salo Reyes MD; Location : [facility] History reviewed. No pertinent family history. Current Outpatient Medications Medication Sig budesonide (ENTOCORT EC) 3 MG Oral CAPSULE ENTERIC COATED PARTICLES Take 3 Caps by mouth DAILY. fluoxetine (PROZAC) 20 MG Oral Cap Take 1 Cap by mouth DAILY. lamotrigine (LAMICTAL) 25 MG Oral Tab Take 1 Tab by mouth DAILY. No current facility-administered medications for this visit. Amoxicillin and Red dye Social History Socioeconomic History Marital status: Single Spouse name: Not on file Number of children: Not on file Years of education: Not on file Highest education level: Not on file Occupational History Not on file Social Needs Financial resource strain: Not on file Food insecurity: Worry: Not on file Inability: Not on file Transportation needs: Medical: Not on file Non-medical: Not on file Tobacco Use Smoking status: Former Smoker Smokeless tobacco: Never Used Tobacco comment: pt vapes Substance and Sexual Activity Alcohol use: No Alcohol/week: 0.0 standard drinks Drug use: No Sexual activity: Yes Partners: Female Lifestyle Physical activity: Days per week: Not on file Minutes per session: Not on file Stress: Not on file Relationships Social connections: Talks on phone: Not on file Gets together: Not on file Attends gnosticist service: Not on file Active member of club or organization: Not on file Attends meetings of clubs or organizations: Not on file Relationship status: Not on file Intimate partner violence: Fear of current or ex partner: Not on file Emotionally abused: Not on file Physically abused: Not on file Forced sexual activity: Not on file Other Topics Concern Not on file Social History Narrative Not on file REVIEW OF SYSTEMS: All remaining review of systems was negative except for as noted in the history of present illness/subjective. GENERAL: alert and oriented x 3, no acute distress, appears stated age and well nourished. VITALS: BP 97/60 | Pulse 89 | Ht 5' 2" (1.575 m) | Wt 133 lb (60.3 kg) | SpO2 96% | BMI 24.33 kg/m SKIN: no jaundice, spider angiomata, palmar erythema or vesicular lesions. HEENT: sclera normal, anicteric, mucous membrane moist, conjunctiva pink and pale NECK: supple. No mass, adenopathy, thyroidmegaly. LUNGS: clear to auscultation bilaterally. HEART: regular rate and rhythm, no murmurs. EXTREMITIES: no clubbing, cyanosis, or edema. NEUROLOGICAL: no asterixis ABDOMEN: soft, nondistended, no masses or organomegaly tenderness noted generalized bowel sounds normal. IMPRESSION/PLAN: ICD-9-CM ICD-10-CM 1. Irritable bowel syndrome, unspecified type 564.1 K58.9 budesonide (ENTOCORT EC) 3 MG Oral CAPSULEENTERIC COATED PARTICLES Condition(s), is currently improved, will treat colitis with short course of budesonide. The diagnosis was discussed with the patient and evaluation and treatment plans outlined. Recommend following up with PCP to have an autoimmune work up completed. The colitis she has is reactive. The risks and benefits of my recommendations, as well as other treatment options were discussed withthe patient today. Questions were answered. Patient Instructions Follow up with PCP regarding reactive colitis and positive JASMINA testing. Need to have complete autoimmune work up. Requested Prescriptions Signed Prescriptions Disp Refills budesonide (ENTOCORT EC) 3 MG Oral CAPSULE ENTERIC COATED PARTICLES 90 Cap 1 Sig: Take 3 Caps by mouth DAILY. Return if symptoms worsen or fail to improve. Author: Nelsy Armando NP 03/28/2019 15:56 documented in this encounter Plan of Treatment Health Maintenance Due Date Last Done Comments CHLAMYDIA SCREENING 1995 PAP SMEAR 1995 DEPRESSION SCREENING 2007 HIV SCREENING 2010 HPV IMMUNIZATION SERIES (1 - 2010 Female 3-dose series) INFLUENZA VACCINE (#1) 2019 05/03/2009 MENINGOCOCCAL VACCINE IMM Aged Out No longer eligible based on patient's age to complete this topic PNEUMOCOCCAL 0-64 YRS Aged Out No longer eligible based on patient's age to complete this topic documented as of this encounter Results Not on filedocumented in this encounter Visit Diagnoses Diagnosis Irritable bowel syndrome, unspecified type - Primary documented in this encounter Guarantor Name Account Type Relation to Date of Phone Billing Patient Address Beth Hernández Personal/Family 1995 [address] S[address]HE[address] (Home) [place] [employer] [phone] [facility] (Work) [place] [id number] documented as of this encounter
[2019-05-07 10:17] VITALS: BP 109/65
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
== END 2019-05-07 11:55 | disposition home or self-care (01) ==
LOC: UCEAST 09:56
DX: S40.011A Contusion of right shoulder, initial encounter (principal); F17.290 Nicotine dependence, other tobacco product, uncomplicated; Z88.0 Allergy status to penicillin; Z91.09 Other allergy status, other than to drugs and biological substances; W54.1XXA Struck by dog, initial encounter; Y92.9 Unspecified place or not applicable
CPT/HCPCS: 99212; G0463